=== PATIENT | male | born 1960 | race Caucasian/White ===

== ENCOUNTER 2024-04-01 09:27 | Outpatient (AMB) | payer MEDICARE, MEDICAID, SELFPAY ==
--- NOTE | 2024-04-01 09:23 | HO.NEPHOV ---
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 He has had multiple episodes of MARIUM. Recent creatinine was at 1.9 which is gradually decreased to 1.3 as of 03/03/2024. He has a history of COPD. History of intubation and tracheostomy in 2013. Recently diagnosed with a nasopharyngeal carcinoma and waiting to see oncologist. History of present disease status post bilateral lower extremity amputation and currently in a wheelchair. 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 Sleep apnea Severe obesity Peripheral vascular disease Morbid obesity Lateral medullary syndrome Hypertension Hyperlipemia Hepatic steatosis Heterozygous factor V Leiden mutation Diabetes mellitus CVA (cerebral vascular accident) COVID-19 COPD (chronic obstructive pulmonary disease) Chronic kidney disease Chronic diastolic CHF (congestive heart failure) Below knee amputation Anemia Surgical History S/P emergency tracheotomy for assistance in breathing (~12/2013) H/O colonoscopy with polypectomy (~06/2017) Review of Systems Const Denies fever(s) and Denies weight loss Card Denies chest pain Resp Denies cough and Denies hemoptysis GI Denies abdominal pain, Denies diarrhea and Denies nausea Musc Denies back pain Neuro Denies focal weakness Physical Exam Vital Signs: Last Vital Signs Pulse 73 04/01/24 09:31 BP 120/64 04/01/24 09:31 Pulse Ox 97 04/01/24 09:31 Oxygen Delivery Method Room Air 04/01/24 09:31 Const General: comfortable; No acute distress Orientation/consciousness: patient oriented x3 Eyes General: appearance normal, both eyes and all related structures Visual Jeff: normal visual jeff by confrontation Neck Neck: Yes supple and Yes no JVD Resp Effort & Inspection: normal respiratory effort and respiratory effort not decreased Auscultation: rhonchi Cardio Palpation: no palpable S3 and no palpable S4 Heart sounds: no rubs GI Inspection: Yes normal to inspection Palpation (GI): Soft to palpation Percussion: Yes normal to percussion Auscultation: normal bowel sounds General: Yes no CVA tenderness Back/Spine/Pelvis Back: no CVA tenderness Skin General skin exam: no petechiae and no purpura Neuro General: patient oriented x3 and no focal motor deficits Extrem Other: Bilateral lower extremity amputee Results Reviewed Results Reviewed: Recent creatinine 1.33 Nephrology Results: No Data to Display Assessment & Plan Assessment & Plan (1) Chronic kidney disease: Code(s): N18.9 - Chronic kidney disease, unspecified Category: Medical Plan 61-year-old man with longstanding diabetes mellitus and hypertension with chronic kidney disease stage 3. 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 He had episodes of acute kidney injury mostly due to hypoperfusion. At present I MARIUM is resolved and renal functions close to baseline. Goal is to slow the portion disease. We discussed importance of tight control blood pressure and blood sugar to slow the portion disease. Continue with LEATHA blockade and SGLT2 inhibitors. Continue overt nephrotoxic agents including NSAIDs. All medication should be adjusted to EGFR of less than 60 mL/minute. Orders: Orders Creatinine Urine Today N18.9 - Chronic kidney disease, unspecified Comprehensive Met. Panel Today N18.9 - Chronic kidney disease, unspecified Total Protein Urine Random Today N18.9 - Chronic kidney disease, unspecified UA and rflx microscopic Today N18.9 - Chronic kidney disease, unspecified Complete Blood Count Auto Diff Today N18.9 - Chronic kidney disease, unspecified Parathyroid Hormone Related Pr Today N18.9 - Chronic kidney disease, unspecified Coding Level of Care Code New Pt Level 4 (83634) Diagnoses Chronic kidney disease N18.9
[2024-04-01 09:31] VITALS: BP 120/64; PULSE 73; O2SAT 97
== END 2024-04-01 09:49 | disposition home or self-care (01) ==
PROVIDERS: PCP Internal Medicine; Visit Provider Internal Medicine Hypertension Specialist
DX: N18.9 Chronic kidney disease, unspecified (principal)
CPT/HCPCS: 99204

== ENCOUNTER → 2024-04-01 09:27 | Outpatient (BNVA) | payer MEDICARE, SELFPAY | PROVIDERS: PCP Internal Medicine; Visit Provider Internal Medicine Hypertension Specialist | DX: E11.3599 Type 2 diabetes mellitus with proliferative diabetic retinopathy without macular edema, unspecified eye (principal); E11.22 Type 2 diabetes mellitus with diabetic chronic kidney disease; N18.9 Chronic kidney disease, unspecified | CPT/HCPCS: 99202 ==

== ENCOUNTER 2024-09-02 08:40 | Outpatient (AMB) | payer MEDICARE, MEDICAID, SELFPAY ==
--- NOTE | 2024-09-02 08:44 | HO.NEPHOV_ITS ---
Vital Signs 09/02/24 08:45 Weight 262 lb BP 108/52 L Blood Pressure Location Rt brachial Position Sitting Pulse 72 Pulse Source Pulse Oximeter Pulse Oximetry (%) 97 Oxygen Delivery Method Room Air Intake Visit Reasons: Follow up/ Conf Digital Associate Media Director Required: No Accompanied by: Self / Same As Patient Allergies No Known Allergies Allergy (Verified 09/02/24 08:46) Medication List - Last Reconciled 09/02/24 by Ramiro Al MD albuterol sulfate 90 mcg/actuation inhalation Q4H PRN amlodipine 5 mg PO BID atorvastatin 80 mg PO DAILY baclofen 5 mg PO BID bumetanide 1 mg PO DAILY cholecalciferol (vitamin D3) (Vitamin D3) 25 mcg PO DAILY clopidogrel 75 mg PO DAILY empagliflozin (Jardiance) 25 mg PO DAILY ezetimibe 10 mg PO DAILY fenofibrate nanocrystallized 145 mg PO DAILY fluticasone furoate 100 mcg/actuation (Arnuity Ellipta) 1 inh inhalation DAILY insulin regular hum U-500 conc (Humulin R U-500 (Conc) Insulin Kwikpen) units subcut labetalol 100 mg PO BID losartan 50 mg PO DAILY omeprazole 40 mg PO DAILY oxycodone 5 mg PO BID PRN polyethylene glycol 3350 grams PO DAILY semaglutide (Ozempic) 0.5 mg subcut QWEEK umeclidinium 62.5 mcg/actuation (Incruse Ellipta) 1 inh inhalation DAILY HPI Comments Details: 64-year-old man with longstanding history of hypertension diabetes mellitus his chronic kidney disease. He has had multiple episodes of MARIUM. Recent creatinine was at 1.9 which is g radually decreased to 1.3 as of 03/03/2024. He has a history of COPD. History of intubation and tracheostomy in 2013. Recently diagnosed with a nasopharyngeal carcinoma and waiting to see oncolo gist. History of present disease status post bilateral lower extremity amputation and currently in a wheelchair Recently in ER for constipation s/p Manual evacuation. 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 Sleep apnea Severe obesity Peripheral vascular disease Morbid obesity Lateral medullary syndrome Hypertension Hyperlipemia Hepatic steatosis Heterozygous factor V Leiden mutation Diabetes mellitus CVA (cerebral vascular accident) COVID-19 COPD (chronic obstructive pulmonary disease) Chronic kidney disease Chronic diastolic CHF (congestive heart failure) Below knee amputation Anemia Surgical History S/P emergency tracheotomy for assistance in breathing (~12/2013) H/O colonoscopy with polypectomy (~06/2017) Physical Exam Vital Signs: Last Vital Signs Pulse 72 09/02/24 08:45 BP 108/52 L 09/02/24 08:45 Pulse Ox 97 09/02/24 08:45 Oxygen Delivery Method Room Air 09/02/24 08:45 Const General: comfortable; No acute distress Orientation/consciousness: patient oriented x3 Eyes General: appearance normal, both eyes and all related structures Visual Jeff: normal visual jeff by confrontation Neck Neck: Yes supple and Yes no JVD Resp Effort & Inspection: normal respiratory effort and respiratory effort not decreased Auscultation: rhonchi Cardio Palpation: no palpable S3 and no palpable S4 Heart sounds: no rubs GI Inspection: Yes normal to inspection Palpation (GI): Soft to palpation Percussion: Yes normal to percussion Auscultation: normal bowel sounds General: Yes no CVA tenderness Back/Spine/Pelvis Back: no CVA tenderness Skin General skin exam: no petechiae and no purpura Neuro General: patient oriented x3 and no focal motor deficits Extrem Other: Bilateral lower extremity amputee Results Reviewed Results Reviewed: Cr up to 2.4 as on 08/19/24 Nephrology Results: No Data to Display Assessment & Plan Assessment & Plan (1) Chronic kidney disease: Code(s): N18.9 - Chronic kidney disease, unspecified Category: Medical Plan 61-year-old man with longstanding diabetes mellitus and hypertension with chronic kidney disease stage 3. 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 He had episodes of acute kidney injury mostly due to hypoperfusion in a setting of Constipation and radiation REcheck labs today Increase PO fluid intake Goal is to slow the progression of the kidney disease. We discussed importance of tight control blood pressure and blood sugar to slow the portion disease. Continue with LEATHA blockade and SGLT2 inhibitors. Continue to avoid nephrotoxic agents including NSAIDs. All medication should be adjusted to EGFR of less than 60 mL/minute. Orders: Orders Electrolytes Today N18.9 - Chronic kidney disease, unspecified Blood Urea Nitrogen Today N18.9 - Chronic kidney disease, unspecified Creatinine Today N18.9 - Chronic kidney disease, unspecified Coding Level of Care Code Est Pt Level 4 (60241) Diagnoses Chronic kidney disease N18.9
--- OUTSIDE RECORDS SUMMARY | 2024-09-02 08:44 | XMS_ITS | Continuity of Care Document ---
Author Organization [facility] [place] [address] [place] [address]- Care Team Providers Care Heel Brusher Name Role Phone Hasmukh JOHNSON, Abdoul Varma Primary Care Physician Encounter [facility] Date(s): 07/28/24 - 08/27/24 [facility] [address] [address] Encounter Type: Triage Allergies, Adverse Reactions, Alerts No Known Medication Allergies Immunizations Given and Recorded Vaccine Date Status Refusal Reason influenza virus vaccine, inactivated 08/26/23 Give n influenza virus vaccine, inactivated 04/18/22 Give n influenza virus vaccine, inactivated 07/10/21 Give n influenza virus vaccine, inactivated 06/02/20 Give n influenza virus vaccine, inactivated 03/30/19 Give n influenza virus vaccine, inactivated 06/30/18 Give n influenza virus vaccine, inactivated 05/13/17 Give n influenza virus vaccine, inactivated 07/03/16 Give n influenza virus vaccine, inactivated 04/19/15 Give n influenza virus vaccine, inactivated 05/06/14 Give n influenza virus vaccine, inactivated 1 03/31/12 Gi poli influenza virus vaccine, inactivated 2 03/22/08 Gi poli influenza virus vaccine, inactivated 3 05/26/07 Gi poli [id number] 12y+ bivalent booster vax 04/16/22 Given SARS-CoV-2 (COVID-19) mRNA BNT-162b2 vac 07/10/21 Given SARS-CoV-2 (COVID-19) mRNA BNT-162b2 vac 09/27/20 Recorded zoster vaccine, inactivated 01/25/20 Recorded zoster vaccine, inactivated 09/18/19 Recorded tetanus/diphtheria/pertussis, acel(Tdap) 07/03/16 Given pneumococcal 23-valent vaccine 06/08/15 Given Pneumococcal Vaccine (oldterm) 4 08/21/06 Given Influenza Virus Vaccine (oldterm) 5 05/14/06 Given Diphth-Tetanus Toxoids Adsorbed(oldterm) 12/12/04 Given 1Admin Note: VIS GIVEN-DATED 01/14/12 2Admin Note: VIS GIVEN 3Admin Note: VIS GIVEN 4Admin Note: VIS-GIVEN 5Admin Note: VIS GIVEN Medications Albuterol (Eqv-ProAir HFA) 90 mcg/inh inhalation aerosol 1 puffs, Inhalation, Every 4 hours, PRN NEEDED FOR WHEEZING, # 8.5 Gm, 11 Refills, 05/27/23 9:42:00 AM EST, [facility], 33, 1 puffs Inhalation Every 4 hours,PRN: NEEDED FOR WHEEZING, 170, cm, 05/27/23 8:59:00 EST, Height, 123.8, kg, 03/06/23 11:53:00 EDT, Dry Weight Start Date: 05/27/23 Status: Ordered Quantity: 8.5 Unit: g Repeat number: 12 amLODIPine 5 mg oral tablet 5 mg, 1, tablet, By Mouth, Daily, # 90 tablet, Refills 1, Tot. Refills 1, Maintenance, 08/10/24 8:29:00 AM EST, Route to Pharmacy Electronically, [facility], dose decrease, 170, cm,08/10/24 8:03:00 EST, Height, 127, kg, 07/27/24 8:40:00 EST, Dry Weight Start Date: 08/10/24 Stop Date: 02/06/25 Status: Ordered Quantity: 90.0 Unit: tablet Repeat number: 2 Arnuity Ellipta 100 mcg inhalation powder 1 puffs, Inhalation, Every 24 hours, (THIS REPLACES FLOVENT), # 30 each, 5 Refills, Maintenance, 03/02/24 8:34:00 PM EDT, [facility], 170, cm, 02/28/24 9:19:00 EDT, Height, 132, kg,01/15/24 0:02:00 EDT, Dry Weight Start Date: 03/02/24 Status: Ordered Quantity: 30.0 Unit: each Repeat number: 1 atorvastatin 80 mg oral tablet 1 tablet, By Mouth, Daily, # 90 tablet, 1 Refills, Maintenance, 03/27/24 8:59:00 AM EDT, [facility], 170.18, cm, 03/12/24 10:52:00 EDT, Height, 134.7, kg, 03/11/24 10:33:00 EDT, DryWeight Start Date: 03/27/24 Status: Ordered Quantity: 90.0 Unit: tablet Repeat number: 1 Augmentin 875 mg-125 mg oral tablet 1 tablet, By Mouth, Every 12 hours, for 10 days, # 20 tablet, 0 Refills, Acute 08/28/24 3:03:00 PM EST, 08/18/24 3:03:00 PM EST, Tablet, [facility], Partial fill upon patient request if the prescription is for a schedule II opioid drug., 170, cm, 08/18/24 14:19:00 EST, Height, 119.09, kg, 08/18/24 8:44:00 EST, Dry Weight Start Date: 08/18/24 Stop Date: 08/28/24 Status: Ordered Quantity: 20.0 Unit: tablet Repeat number: 1 baclofen 5 mg oral tablet 1 tablet = 5 mg, By Mouth, 2 times a day, Once in the morning and once before bed, # 60 tablet, 7 Refills, Maintenance, 02/28/24 1:04:00 PM EDT, [facility], Partial fill upon patient request if the prescription is for a schedule II opioid drug., 170, cm, 02/28/24 9:19:00 EDT, Height, 132, kg, 01/15/24 0:02:00 EDT, Dry Weight Start Date: 02/28/24 Status: Ordered Quantity: 60.0 Unit: tablet Repeat number: 8 BD PEN NEEDLE MEY 32G X 4 MM MISC BD PEN NEEDLE MEY 32G X 4 MM MISC, See Instructions, # 600 each, 3 Refills, Maintenance, USE TO INJECT INSULIN 5 TIMES DAILY., 05/05/24 6:22:00 PM EDT, 170.18, cm, 05/05/24 10:30:00 EDT, Height, 134.7, kg, 03/11/24 10:33:00 EDT, Dry Weight Start Date: 05/05/24 Status: Ordered Quantity: 600.0 Unit: each Repeat number: 1 BD PEN NEEDLE MEY 32G X 4 MM MISC USE DIRECTED FOR DM TO INJECT INSULIN 4 TIMES A DAY Start Date: 05/30/22 Status: Ordered Repeat number: 1 BD pen needle mey [id number] BD pen needle mey [id number], See Instructions, # 600 each, Refills 3, Tot. Refills 3, Maintenance, use to inject insulin 5 times per day e11.9, 02/25/23 1:55:00 PM EDT, Supply, 180, cm, 02/25/23 13:40:00 EDT, Height, 150, kg, 02/03/23 16:08:00 EDT, Dry Weight Start Date: 02/25/23 Status: Ordered Quantity: 600.0 Unit: each Repeat number: 4 Benadryl Elixir 4 oz, Nystatin Suspension 4 oz, Lidocaine viscous 2% 100 mL, Mylanta or Maalox 8 oz Benadryl Elixir 4 oz, Nystatin Suspension 4 oz, Lidocaine viscous 2% 100 mL, Mylanta or Maalox 8 oz, See Instructions, # 580 mL, Refills 2, Tot. Refills 2, Acute 10/23/24 10:36:00 AM EDT, 1-2 tsp Q 2-4 hours PRN; Swish and Swallow; Shake well before use, 09/04/24 2:57:00 PM EST, Compound, 170, cm, 08/18/24 14:19:00 EST, Height, 119, kg, 08/18/24 15:14:00 EST, Dry Weight Start Date: 09/04/24 Stop Date: 10/23/24 Status: Ordered Quantity: 580.0 Unit: mL Repeat number: 3 Benadryl Elixir 4 oz, Nystatin Suspension 4 oz, Lidocaine viscous 2% 100 mL, Mylanta or Maalox 8 oz Benadryl Elixir 4 oz, Nystatin Suspension 4 oz, Lidocaine viscous 2% 100 mL, Mylanta or Maalox 8 oz, See Instructions, # 580 mL, Refills 2, Tot. Refills 2, Acute 09/04/24 2:57:00 PM EST, 1-2 tsp Q 2-4hours PRN; Swish and Swallow; Shake well before use, 07/03/24 2:56:00 PM EST, Compound, 170.18, cm,06/26/24 9:45:00 EST, Height, 134.7, kg, 03/11/24 10:33:00 EDT, Dry Weight Start Date: 07/03/24 Stop Date: 09/04/24 Status: Ordered Quantity: 580.0 Unit: mL Repeat number: 3 Boost Glucose Support (or equivalent supplement) Boost Glucose Support (or equivalent supplement), See Instructions, # 90 each, Refills 5, Tot. 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 Refills 1, Maintenance, 04/09/24 1:28:00 PMEDT, Route to Pharmacy Electronically, [facility], 170.18, cm, 04/03/24 9:44:00 EDT, Height, 134.7, kg, 03/11/24 10:33:00 EDT, Dry Weight Start Date: 04/09/24 Status: Ordered Quantity: 90.0 Unit: tablet Repeat number: 2 clopidogrel 75 mg oral tablet 75 mg, 1, tablet, By Mouth, Daily, # 90 tablet, Refills 3, Tot. Refills 3, Maintenance, 04/09/24 10:17:00 AM EDT, Route to Pharmacy Electronically, [facility], Partial fill upon patient request if the prescription is for a schedule II opioid drug., 170.18, cm, 04/03/24 9:44:00 EDT, Height, 134.7, kg, 03/11/24 10:33:00 EDT, Dry Weight Start Date: 04/09/24 Status: Ordered Quantity: 90.0 Unit: tablet Repeat number: 4 CPAP Machine See Instructions, # 1 each, Refills 0, Tot. Refills 0, Maintenance, auto CPAP 13 to 18cm of H20 with heated humidifier, with compliance data tracking. full face mask, and all tubing. Use QHS and PRN DX: G47.30 Duration: Lifetime, 06/03/24 11:02:00 AM EST, Supply Start Date: 06/03/24 Status: Ordered Quantity: 1.0 Unit: each Repeat number: 1 Indication: Sleep apnea, unspecified ezetimibe 10 mg oral tablet 1 tablet, By Mouth, Daily, # 90 tablet, 1 Refills, Maintenance, 06/18/24 10:18:00 AM EST, [facility], 170.18, cm, 05/26/24 9:12:00 EST, Height, 134.7, kg, 03/11/24 10:33:00 EDT, DryWeight Start Date: 06/18/24 Status: Ordered Quantity: 90.0 Unit: tablet Repeat number: 1 fenofibrate 145 mg oral tablet 1 tablet, By Mouth, Daily, # 90 tablet, 1 Refills, Maintenance, 04/29/24 2:25:00 PM EDT, [facility], 170.18, cm, 04/24/24 9:57:00 EDT, Height, 134.7, kg, 03/11/24 10:33:00 EDT, DryWeight Start Date: 04/29/24 Stop Date: 10/26/24 Status: Ordered Quantity: 90.0 Unit: tablet Repeat number: 2 Freestyle maggi 14 day sensor Freestyle maggi 14 day sensor, See Instructions, # 2 each, Refills 10, Tot. Refills 10, Maintenance, use to monitor bld glucose, change every 14 days E11.9, 12/24/23 3:04:00 PM EDT, Supply, 170, cm, 12/04/23 7:05:00 EDT, Height, 136.5, kg, 10/01/23 8:46:00 EDT, Dry Weight Start Date: 12/24/23 Status: Ordered Quantity: 2.0 Unit: each Repeat number: 11 freestyle precision peyton test strips freestyle precision peyton test strips, See Instructions, # 200 each, Refills 3, Tot. Refills 3, Maintenance, use to check blood sugar up to 3 times per day e11.9, 02/25/23 1:59:00 PM EDT, Supply, 180, cm, 02/25/23 13:40:00 EDT, Height, 150, kg, 02/03/23 16:08:00 EDT, Dry Weight Start Date: 02/25/23 Status: Ordered Quantity: 200.0 Unit: each Repeat number: 4 Glucagon 1 mg/0.2 mL subcutaneous solution = 1 mg, Subcutaneous Infusion, Once, To be use for hypoglycemic emergency by family member or accompanying person, if blood glucoses less than 60 and unconscious. Please call 911 after use glucagon pen., # 1 each, 0 Refills, Soft Stop, 04/24/24 10:51:00 AM EDT, [facility], Partial fill upon patient request if the prescription is for a schedule II opioid drug., 170.18, cm, 04/24/24 9:57:00 EDT, Height, 134.7, kg, 03/11/24 10:33:00 EDT, Dry Weight Start Date: 04/24/24 Status: Ordered Quantity: 1.0 Unit: each Repeat number: 1 HumuLIN R KwikPen (Concentrated) human recombinant 500 units/mL subcutaneous solution See Instructions, INJECT 80-110 UNITS UNDER THE SKIN 3 TIMES A DAY 30 MINUTES BEFORE MEALS PER SLIDING SCALE., # 20 mL, 5 Refills, Maintenance, 04/24/24 10:50:00 AM EDT, [facility], 170.18, cm, 04/24/24 9:57:00 EDT, Height, 134.7, kg, 03/11/24 10:33:00 EDT, Dry Weight Start Date: 04/24/24 Status: Ordered Quantity: 20.0 Unit: mL Repeat number: 6 Incruse Ellipta 62.5 mcg/inh inhalation powder 1 puffs, Inhalation, Every 24 hours, DOSES SHOULD BE TAKEN AT LEAST 24 HOURS APART, # 30 each, 5 Refills, Maintenance, 02/24/24 3:36:00 PM EDT, [facility], 170, cm, 01/31/24 9:07:00EDT, Height, 132, kg, 01/15/24 0:02:00 EDT, Dry Weight Start Date: 02/24/24 Status: Ordered Quantity: 30.0 Unit: each Repeat number: 1 Jardiance 25 mg oral tablet 1 tablet = 25 mg, By Mouth, Daily in AM, Take one tablet daily in the morning, # 90 tablet, 3 Refills, Maintenance, 07/02/24 8:54:00 AM EST, Tablet, [facility], Partial fill upon patient request if the prescription is for a schedule II opioid drug., 170.18, cm, 06/26/24 9:45:00 EST, Height, 134.7, kg, 03/11/24 10:33:00 EDT, Dry Weight Start Date: 07/02/24 Status: Ordered Quantity: 90.0 Unit: tablet Repeat number: 4 labetalol 100 mg oral tablet 1 tablet, By Mouth, 2 times a day, # 180 tablet, 1 Refills, Maintenance, 06/18/24 10:18:00 AM EST, [facility], 170.18, cm, 05/26/24 9:12:00 EST, Height, 134.7, kg, 03/11/24 10:33:00EDT, Dry Weight Start Date: 06/18/24 Status: Ordered Quantity: 180.0 Unit: tablet Repeat number: 1 Left Below The Knee Replacement Socket & Supplies Left Below The Knee Replacement Socket & Supplies, See Instructions, # 1 each, Refills 0, Tot. Refills 0, Maintenance, Use As Indicated Dx: Left BKA (Z89.512) Duration: Lifetime, 08/15/22 9:13:00 AM EST, Supply Start Date: 08/15/22 Status: Ordered Quantity: 1.0 Unit: each Repeat number: 1 lidocaine 2% topical gel with applicator See Instructions, mix with silvadene before applying to wounds, # 100 mL, 1 Refills, Maintenance, 08/12/24 10:36:00 AM EST, Gel, [facility], Partial fill upon patient request if theprescription is for a schedule II opioid drug., 170, cm, 08/10/24 8:03:00 EST, Height, 127, kg, 07/27/24 8:40:00 EST, Dry Weight Start Date: 08/12/24 Status: Ordered Quantity: 100.0 Unit: mL Repeat number: 2 Lidocaine Viscous 2% solution 1 application, Topically, 4 times a day, PRN for mouth sore pain, Can mix with silvadene cream to apply to skin on neck, # 100 mL, 0 Refills, Maintenance, 07/28/24 2:53:00 PM EST, Solution, [facility], Partial fill upon patient request if the prescription is for a schedule II opioid drug., 1 application Topically 4 times a day,PRN:for mouth sore pain,Instr:Can mix with silvadenecream to apply to skin on neck, 170, cm, 07/27/24 8:40:00 EST, Height, 127, kg, 07/27/24 8:40:00 EST, Dry Weight Start Date: 07/28/24 Status: Ordered Quantity: 100.0 Unit: mL Repeat number: 1 losartan 50 mg oral tablet 1 tablet = 50 mg, By Mouth, 2 times a day, # 180 tablet, 1 Refills, Maintenance, 06/26/24 10:27:00 AM EST, [facility], Frequency increase from 50 mg daily to BID, 170.18, cm, 06/26/24 9:45:00 EST, Height, 134.7, kg, 03/11/24 10:33:00 EDT, Dry Weight Start Date: 06/26/24 Stop Date: 12/23/24 Status: Ordered Quantity: 180.0 Unit: tablet Repeat number: 2 MiraLax oral powder for reconstitution = 17 Gm, By Mouth, Daily, dissolve in 4 to 8 oz of beverage, # 527 Gm, 0 Refills, Acute 09/16/24 6:19:00 AM EST, 08/18/24 6:19:00 AM EST, REC Powder, [facility], Partial fill upon patient request if the prescription is for a schedule II opioid drug., 17 Gm By Mouth Daily,Instr:dissolve in 4 to 8 oz of beverage, 170, cm, 08/18/24 3:07:00 EST, Height, 119.09, kg, 08/18/24 3:07:00 EST, Dry Weight Start Date: 08/18/24 Stop Date: 09/16/24 Status: Ordered Quantity: 527.0 Unit: g Repeat number: 1 omeprazole 40 mg oral enteric coated capsule 1 capsule, By Mouth, Daily, # 90 capsule, 1 Refills, Maintenance, 04/29/24 2:21:00 PM EDT, [facility], 170.18, cm, 04/24/24 9:57:00 EDT, Height, 134.7, kg, 03/11/24 10:33:00 EDT, Dry Weight Start Date: 04/29/24 Status: Ordered Quantity: 90.0 Unit: capsule Repeat number: 2 Orthotics See Instructions, # 1 each, Refills 0, Tot. Refills 0, Maintenance, LEFT BELOW THE KNEE REPLACEMENT SOCKET Left BKA, 08/14/22 8:42:00 AM EST, Supply Start Date: 08/14/22 Status: Ordered Quantity: 1.0 Unit: each Repeat number: 1 oxyCODONE 5 mg oral tablet 5 mg, 1, tablet, By Mouth, Every 6 hours, PRN, # 28 tablet, Refills 0, Tot. Refills 0, Maintenance,as needed for pain, 08/12/24 10:37:00 AM EST, Route to Pharmacy Electronically, [facility], Partial fill upon patient request if the prescription is for a schedule II opioid drug., 170, cm, 08/10/24 8:03:00 EST, Height, 127, kg, 07/27/24 8:40:00 EST, Dry Weight Start Date: 08/12/24 Status: Ordered Quantity: 28.0 Unit: tablet Repeat number: 1 Ozempic 2 mg/3 mL (0.25 mg or 0.5 mg dose) subcutaneous solution = 0.5 mg, Subcutaneous Injection, Every week, rotate injection sites, # 3 mL, 5 Refills, Maintenance, 05/26/24 2:20:00 PM EST, Solution, [facility], Partial fill upon patient request if the prescription is for a schedule II opioid drug., 170.18, cm, 05/26/24 9:12:00 EST, Height, 134.7, kg, 03/11/24 10:33:00 EDT, Dry Weight Start Date: 05/26/24 Status: Ordered Quantity: 3.0 Unit: mL Repeat number: 6 senna - oral tablet 2 tablet, By Mouth, Daily at bedtime, PRN for constipation, # 60 tablet, 0 Refills, Maintenance, 07/27/24 6:09:00 AM EST, Tablet, [facility], Partial fill upon patient request if the prescription is for a schedule II opioid drug., 170, cm, 07/27/24 4:16:00 EST, Height, 127, kg, 07/27/24 4:16:00 EST, Dry Weight Start Date: 07/27/24 Status: Ordered Quantity: 60.0 Unit: tablet Repeat number: 1 Silvadene 1% cream 1 application, Topically, 2 times a day, for 30 days, Apply to area affected by radiotherapy., # 400 Gm, 2 Refills, Acute 10/25/24 2:52:00 PM EDT, 07/27/24 2:52:00 PM EST, Cream, [facility], Partial fill upon patient request if the prescription is for a schedule II opioid drug., 1 application Topically 2 times a day,x30 days,Instr:Apply to area affected by radiotherapy., 170, cm,07/27/24 8:40:00 EST, Height, 127, kg, 07/27/24 8:40:00 EST, Dry Weight Start Date: 07/27/24 Stop Date: 10/25/24 Status: Ordered Quantity: 400.0 Unit: g Repeat number: 3 Spacer for Inhaler Spacer for Inhaler, See Instructions, # 1 each, Refills 0, Tot. Refills 0, Maintenance, Spacer for inhaler Dx: J44.9 COPD, 08/19/24 2:43:00 PM EST, Supply, 170, cm, 08/18/24 14:19:00 EST, Height, 119, kg, 08/18/24 15:14:00 EST, Dry Weight Start Date: 08/19/24 Status: Ordered Quantity: 1.0 Unit: each Repeat number: 1 Vitamin D3 1000 intl units oral capsule 1 capsule = 25 mcg, By Mouth, Daily, # 100 capsule, 2 Refills, Maintenance, 08/27/24 9:09:00 AM EST,Capsule, [facility], Partial fill upon patient request if the prescription is for a schedule II opioid drug., 170, cm, 08/18/24 14:19:00 EST, Height, 119, kg, 08/18/24 15:14:00 EST, Dry Weight Start Date: 08/27/24 Status: Ordered Quantity: 100.0 Unit: capsule Repeat number: 3 Problem List Condition Confirmation Course Effective Dates Status H ealth Status Informant Below knee amputation 1 Confirmed Active Anemia Confirmed Active Chronic diastolic CHF (congestive heart failure) Confirmed Active Chronic kidney disease (CKD) stage G3b/A2, moderately decreased glomerular filtration rate (GFR) between 30-44 mL/min/1.73 square meter and albuminuria creatinine ratio between 30-299 mg/g Confirmed Active COPD (chronic obstructive pulmonary disease) 2 Confirmed Active COVID-19 3 Confirmed 09/01/22 Active CVA (cerebrovascular accident) 4, 5 Confirmed Active Diabetes mellitus 6, 7, 8 Confirmed Active Difficulty walking Confirmed Active Factor V Leiden mutation-heterozygous 9 Confirmed Active Hyperlipidemia Confirmed Active Hypertension Confirmed Active 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 Confirmed 03/15/24 Active Morbid obesity Confirmed Active Peripheral vascular disease 10 Confirmed Active Severe obesity Confirmed Active Sleep apnea 11, 12, 13 Confirmed Active Muscle spasm Confirmed Active Hepatic steatosis 14 Confirmed Active 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 pt refused evaluation and txmt. not willing to use CPAP. 13on cpap , dx 04/20 14neg hep b and c Social History Social History Type Response Smoking Status Cigars or pipes but not daily within last 30 days; Other: Quit in 2013; entered on: 03/17/21 Sex Sex Representation Male (finding) Patient Care team information Care Team Personnel Name: Jaye Granados RN Position: [facility] RN Member Role: Primary Care Nurse Name: Abdoul Noe MD Position: [facility] Physician - Primary Care Member Role: PCP Address: [address] [place] [address] [place] [address]- Telecom: Name: Litzy Hdz RN Position: [facility] SN RN Member Role: Primary Care Nurse Name: Marlyn Hemphill Position: [facility] RN Member Role: Primary Care Nurse Name: Eugenio Sams RN Position: [facility] RN Member Role: Primary Care Nurse Name: Tiffanie Mahan RN Position: [facility] RN Member Role: Primary Care Nurse Name: Antonio Funez MD Position: [facility] Renal MD Member Role: Lifetime Consulting Physician Address: [address] [place] [address] [address] [facility] [address]- Telecom: Name: Jalyn Darby RN Position: [facility] ED RN W/OE and Tasks Member Role: Primary Care Nurse Name: Samira Mcgrath RN Position: [facility] SN RN Member Role: Primary Care Nurse Name: Tsering Leal RN Position: [facility] RN Member Role: Primary Care Nurse Name: Fran Payton RN Position: [facility] RN Member Role: Primary Care Nurse Name: Mathew Becerra RN Position: [facility] SN RN Member Role: Primary Care Nurse Name: Jamison Caballero RN Position: [facility] RN Member Role: Primary Care Nurse Name: Desirae Jolly RN Position: [facility] RN Member Role: Primary Care Nurse Name: Kathe Weinberg RN Position: [facility] RN Member Role: Primary Care Nurse Name: Martha Yun RN Position: [facility] RN Member Role: Primary Care Nurse Name: Melody Gilman Position: [facility] Outreach Member Role: Lifetime Consulting Physician Name: Chanelle Borges RN Position: [facility] ED RN W/OE and Tasks Member Role: Primary Care Nurse Name: Daniel Morrow MD Position: [facility] Outreach Member Role: Lifetime Consulting Physician Address: [address] [facility] [place] [address]- [place] Telecom: Name: Michelle Sheridan RN Position: [facility] SN RN Member Role: Primary Care Nurse Name: Kaila Vaughan RN Position: [facility] RN Member Role: Primary Care Nurse Name: Barbie Flaherty RN Position: [facility] ED RN W/OE and Tasks Member Role: Primary Care Nurse Name: Cedric Manley Position: [facility] Outreach Member Role: Lifetime Consulting Physician Name: Maddison Salaazr RN Position: [facility] SN RN Member Role: Primary Care Nurse Name: Tiffanie Ware RN Position: [facility] RN Member Role: Primary Care Nurse Name: Alexa Doan RN Position: [facility] RN Member Role: Primary Care Nurse Name: Tsering Weller RN Position: [facility] SN RN Member Role: Primary Care Nurse Name: Rosa Padilla RN Position: [facility] RN Member Role: Primary Care Nurse Name: Thor Grant MD Position: Reference Physician Member Role: Lifetime Consulting Physician Address: [address] [facility] [place] [address]- Telecom: Name: Autumn Rowan RN Position: [facility] Hospital Mixing Pan Tender Member Role: Primary Care Nurse Care Team Related Persons Name: JESSICA LAROSE Name: LEWIS RODRIGUEZ Insurance Providers Guarantor name: BRIAN RODRIGUEZ Health Plan Information #: 1 Payer: MEDICARE PART B OUTPT Member Number: NA Policy Number: NA Group Number: NA Health Plan Information #: 2 Payer: [facility] Member Number: NA Policy Number: NA Group Number: NA
--- OUTSIDE RECORDS SUMMARY | 2024-09-02 08:44 | XMS_ITS | Continuity of Care Document ---
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 Name Role Phone Hasmukh JOHNSON, Abdoul Varma Primary Care Physician [place] [facility] [place]24 [place] 08/14/24 [facility] [address] [id number] Discharge Disposition: A-D/C Home Attending Physician: Anjana Mishra MD Admitting Physician: Sue Sandoval MD Referring Physician: Armin Nagy MD, I Encounter Type: Disch Recurring OP Allergies, Adverse Reactions, Alerts No Known Medication [...] virus vaccine, inactivated 3 05/26/07 Gi poli [id number] 12y+ bivalent booster vax 04/16/22 Given SARS-CoV-2 [...] 8:29:00 AM EST, Route to Pharmacy Electronically, [id number], dose decrease, 170, cm,08/10/24 8:03:00 EST, Height, 127, kg, 07/27/24 8:40:00 EST, Dry Weight Start Date: 08/10/24 Stop Date: 02/06/25 Status: Ordered Quantity: 90.0 Unit: tablet Repeat number: 2 Arnuity Ellipta 100 mcg inhalation powder 1 puffs, Inhalation, Every 24 hours, (THIS REPLACES FLOVENT), # 30 each, 5 Refills, Maintenance, 03/02/24 8:34:00 PM EDT, [facility], 170, cm, 02/28/24 9:19:00 EDT, Height, 132, kg,01/15/24 0:02:00 EDT, Dry Weight Start Date: 03/02/24 Status: Ordered Quantity: 30.0 Unit: each Repeat number: 1 atorvastatin 80 mg oral tablet 1 tablet, By Mouth, Daily, # 90 tablet, 1 Refills, Maintenance, 03/27/24 8:59:00 AM EDT, [facility], 170.18, cm, 03/12/24 10:52:00 EDT, Height, 134.7, kg, 03/11/24 10:33:00 EDT, DryWeight Start Date: 03/27/24 Status: Ordered Quantity: 90.0 Unit: tablet Repeat number: 1 baclofen 5 mg oral tablet 1 tablet = 5 mg, By Mouth, 2 times a day, Once in the morning and once before bed, # 60 tablet, 7 Refills, Maintenance, 02/28/24 1:04:00 PM EDT, [facility] #[facility], Partial fill upon patient request [...] Repeat number: 1 BD pen needle mey [id number] BD pen needle mey [id number], See Instructions, # 600 each, Refills 3, [...] 04/09/24 1:28:00 PMEDT, Route to Pharmacy Electronically, [facility] #782, 170.18, cm, 04/03/24 9:44:00 EDT, Height, 134.7, kg, 03/11/24 10:33:00 EDT, Dry Weight Start Date: 04/09/24 Status: Ordered Quantity: 90.0 Unit: tablet Repeat number: 2 clopidogrel 75 mg oral tablet 75 mg, 1, tablet, By Mouth, Daily, # 90 tablet, Refills 3, Tot. Refills 3, Maintenance, 04/09/24 10:17:00 AM EDT, Route to Pharmacy Electronically, [facility] #782, Partial fill upon patient request [...] 1 Refills, Maintenance, 06/18/24 10:18:00 AM EST, [facility] #[facility], 170.18, cm, 05/26/24 9:12:00 EST, Height, 134.7, kg, 03/11/24 10:33:00 EDT, DryWeight Start Date: 06/18/24 Status: Ordered Quantity: 90.0 Unit: tablet Repeat number: 1 fenofibrate 145 mg oral tablet 1 tablet, By Mouth, Daily, # 90 tablet, 1 Refills, Maintenance, 04/29/24 2:25:00 PM EDT, [facility], 170.18, cm, 04/24/24 9:57:00 EDT, [...] 5 Refills, Maintenance, 04/24/24 10:50:00 AM EDT, [facility] #[facility], 170.18, cm, 04/24/24 9:57:00 EDT, Height, 134.7, kg, 03/11/24 10:33:00 EDT, Dry Weight Start Date: 04/24/24 Status: Ordered Quantity: 20.0 Unit: mL Repeat number: 6 Incruse Ellipta 62.5 mcg/inh inhalation powder 1 puffs, Inhalation, Every 24 hours, DOSES SHOULD BE TAKEN AT LEAST 24 HOURS APART, # 30 each, 5 Refills, Maintenance, 02/24/24 3:36:00 PM EDT, [facility] #[facility], 170, cm, 01/31/24 9:07:00EDT, Height, 132, kg, 01/15/24 0:02:00 EDT, Dry Weight Start Date: 02/24/24 Status: Ordered Quantity: 30.0 Unit: each Repeat number: 1 Jardiance 25 mg oral tablet 1 tablet = 25 mg, By Mouth, Daily in AM, Take one tablet daily in the morning, # 90 tablet, 3 Refills, Maintenance, 07/02/24 8:54:00 AM EST, Tablet, [facility], Partial fill upon [...] Maintenance, 06/18/24 10:18:00 AM EST, [facility], 170.18, cm, 05/26/24 9:12:00 EST, Height, 134.7, kg, 03/11/24 10:33:00EDT, Dry Weight Start Date: 06/18/24 Status: Ordered Quantity: 180.0 Unit: tablet Repeat number: 1 Left Below The Knee Replacement Socket & Supplies Left Below The Knee Replacement Socket & Supplies, See Instructions, # 1 each, Refills 0, Tot. Refills 0, Maintenance, Use As Indicated Dx: Left UBALDOA (Z89.512) Duration: Lifetime, 08/15/22 9:13:00 AM EST, [...] Maintenance, 06/26/24 10:27:00 AM EST, [facility], Frequency increase from 50 mg daily to BID, 170.18, cm, 06/26/24 9:45:00 EST, Height, 134.7, kg, 03/11/24 10:33:00 EDT, Dry Weight Start Date: 06/26/24 Stop Date: 12/23/24 Status: Ordered Quantity: 180.0 Unit: tablet Repeat number: 2 omeprazole 40 mg oral enteric coated capsule 1 capsule, By Mouth, Daily, # 90 capsule, 1 Refills, Maintenance, 04/29/24 2:21:00 PM EDT, [facility], 170.18, cm, 04/24/24 9:57:00 EDT, [...] 10:37:00 AM EST, Route to Pharmacy Electronically, [facility] #[facility], Partial fill upon patient request [...] Maintenance, Spacer for inhaler Dx: J44.9 COPD, 08/10/24 4:04:00 PM EST, Supply, 170, cm, 08/10/24 8:03:00 EST, Height, 127, kg, 07/27/24 8:40:00 EST, Dry Weight Start Date: 08/10/24 Status: Ordered Quantity: 1.0 Unit: each Repeat number: 1 Vitamin D3 1000 intl units oral capsule 1 capsule = 25 mcg, By Mouth, Daily, # 100 capsule, 2 Refills, Maintenance, 10/31/23 8:57:00 AM EDT,Capsule, [facility], Partial fill upon patient request if the prescription is for a schedule II opioid drug., 170, cm, 10/31/23 8:31:00 EDT, Height, 136.5, kg, 10/01/23 8:46:00 EDT, Dry Weight Start Date: 10/31/23 Status: Ordered Quantity: 100.0 Unit: capsule Repeat [...] dx 04/20 14neg hep b and c Vital Signs Most recent to oldest [Reference Range]: 1 2 3 Height 170 cm (08/04/24 2:38 PM) 170.18 cm (07/21/24 2:28 PM) 170.18 cm (07/14/24 2:31 PM) Weight 130.2 kg (06/30/24 4:40 PM) 133.7 kg (06/23/24 4:41 PM) Oxygen Saturation [94-100 %] 98 % (08/11/24 2:20 PM) 99 % (08/04/24 2:38 PM) 97 % (07/28/24 2:25 PM) Pulse Rate [55-90 bpm] 65 bpm (08/11/24 2:20 PM) 66 bpm (08/04/24 2:38 PM) 78 bpm (07/28/24 2:25 PM) Blood Pressure [90-138/55-84 mm Hg] 135/31mm Hg (08/11/24 2:20 PM) 133/46mm Hg (08/04/24 2:38 PM) 141/43mm Hg *H* (07/28/24 2:25 PM) Temperature [96.8-100.4 DegF] 97.1 DegF (08/11/24 2:20 PM) 97.9 DegF (08/04/24 2:38 PM) 98.4 DegF (07/28/24 2:25 PM) Mode of Delivery (Oxygen) Room air (08/11/24 2:20 PM) Room air (08/04/24 2:38 PM) Room air (07/28/24 2:25 PM) Blood pressure sites Arm, left (08/11/24 2:20 PM) Arm, left (08/04/24 2:38 PM) Arm, right (07/28/24 2:25 PM) Temperature Route Temporal (08/11/24 2:20 PM) Oral (08/04/24 2:38 PM) Oral (07/28/24 2:25 PM) Weight Obtained Via Standing scale (07/28/24 2:25 PM) Standing scale (07/14/24 2:31 PM) Per Mosaiq (06/30/24 4:40 PM) Dry Weight Obtained Via Standing scale (07/28/24 2:25 PM) Standing scale (07/14/24 2:31 PM) Social History Social History Type Response Smoking Status Cigars or pipes but not daily within last 30 days; Other: Quit in 2013; entered on: 03/17/21 Sex Sex Representation Male (finding) Patient Care team information Care Team Personnel Name: Jaye Granados RN Position: [facility] RN Member Role: Primary Care Nurse Name: Hasmukh JOHNSON, Abdoul Varma Position: [facility] Physician - Primary Care Member Role: PCP Address: [address] [place] [address]- Telecom: Name: Ltizy Hdz RN Position: [facility] SN RN Member Role: Primary Care Nurse Name: Marlyn Hemphill Position: [facility] RN Member Role: Primary Care Nurse Name: Eugenio Sams RN Position: [facility] RN Member Role: Primary Care Nurse Name: Tiffanie Mahan RN Position: [facility] RN Member Role: Primary Care Nurse Name: Antonio Funez MD Position: [facility] Renal MD Member Role: Lifetime Consulting Physician Address: [address] [place] [address] [address] [facility] [place] [address]- Telecom: Name: Jalyn Darby RN Position: [facility] ED RN W/OE and Tasks Member Role: Primary Care Nurse Name: Samira Mcgrath RN Position: [facility] SN RN Member Role: Primary Care Nurse Name: Tsering Leal RN Position: [facility] RN Member Role: Primary Care Nurse Name: Fran Payton RN Position: [facility] RN Member Role: Primary Care Nurse Name: Mathew Becerra RN Position: [facility] SN RN Member Role: Primary Care Nurse Name: Jamison Caballero RN Position: [facility] RN Member Role: Primary Care Nurse Name: Desirae Jolly RN Position: [facility] RN Member Role: Primary Care Nurse Name: Kathe Weinberg RN Position: [facility] RN Member Role: Primary Care Nurse Name: Martha Yun RN Position: [facility] RN Member Role: Primary Care Nurse Name: Melody Gilman Position: [facility] Outreach Member Role: Lifetime Consulting Physician Name: Chanelle Borges RN Position: [facility] ED RN W/OE and Tasks Member Role: Primary Care Nurse Name: Daniel Morrow MD Position: [facility] Outreach Member Role: Lifetime Consulting Physician Address: [address] [facility] [place] [address]- [place] Telecom: Name: Michelle Sheridan RN Position: [facility] SN RN Member Role: Primary Care Nurse Name: Kaila Vaughan RN Position: [facility] RN Member Role: Primary Care Nurse Name: Barbie Flaherty RN Position: [facility] ED RN W/OE and Tasks Member Role: Primary Care Nurse Name: Cedric Manley Position: [facility] Outreach Member Role: Lifetime Consulting Physician Name: Maddison Salazar RN Position: [facility] SN RN Member Role: Primary Care Nurse Name: Tiffanie Ware RN Position: [facility] RN Member Role: Primary Care Nurse Name: Alexa Doan RN Position: [facility] RN Member Role: Primary Care Nurse Name: Tsering Weller RN Position: [facility] SN RN Member Role: Primary Care Nurse Name: Rosa Padilla RN Position: [facility] RN Member Role: Primary Care Nurse Name: Thor Grant MD Position: Reference Physician Member Role: Lifetime Consulting Physician Address: [address] [facility] [place] [address]- [place] Telecom: Name: Autumn Rowan RN Position: [facility] Web Services Architect Member Role: Primary Care Nurse Care Team Related Persons Name: JESSICA LAROSE Name: LEWIS RODRIGUEZ Insurance Providers Guarantor name[facility] Plan Information #: 1 Payer: MEDICARE PART B OUTPT Member Number: [id number] Policy Number: NA Group Number: NA Health Plan Information #: 2 Payer: [facility] Member Number: [id number] Policy Number: NA Group Number: NA
--- OUTSIDE RECORDS SUMMARY | 2024-09-02 08:44 | XMS_ITS | Clinical Summary ---
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 Role Phone Abdoul Noe MD Primary Care Provider [phone] Medications Umeclidinium [place] (Incruse Ellipta) 62.5 MCG/INH aerosol powder 1 puff by Other route 1 (one) time each day Active albuterol HFA (Ventolin HFA) 108 (90 Base) MCG/ACT inhaler 1 puff by Other route every 4 (four) hours Active atorvastatin (LIPITOR) 80 MG tablet Take 80 mg by mouth 1 (one) time each day 1 Active bumetanide (BUMEX) 1 MG tablet Take 1 mg by mouth 1 (one) time each day 1 Active clopidogrel (PLAVIX) 75 MG tablet Take 75 mg by mouth 1 (one) time each day 1 Active ezetimibe (ZETIA) 10 MG tablet Take 10 mg by mouth 1 (one) time each day 1 Active fenofibrate (TRICOR) 145 MG tablet Take 145 mg by mouth 1 (one) time each day 1 Active fluticasone HFA (Flovent HFA) 110 MCG/ACT inhaler Inhale 2 puffs 2 (two) times a day Active gabapentin (NEURONTIN) 100 MG capsule Take 100 mg by mouth 1 Active HumuLIN R U-500 KWIKPEN 500 UNIT/ML CONCENTRATED injection INJECT 50 UNITS UNDER THE SKIN TWICE DAILY 1 Active insulin lispro protamine-insulin lispro (HumaLOG MIX 50/50 KWIKPEN) (50-50) 100 UNIT/ML inj pen Active labetalol (NORMODYNE) 100 MG tablet Take 100 mg by mouth 2 (two) times a day 1 Active latanoprost (XALATAN) 0.005 % ophthalmic solution Administer 1 drop into both eyes Active liraglutide (Victoza) 18 MG/3ML injection Inject 1.8 mg under the skin 1 (one) time each day Active losartan (COZAAR) 100 MG tablet Take 1 tablet by mouth 2 (two) times a day Active metFORMIN (FORTAMET) 500 MG 24 hr tablet Take 2 tablets by mouth 2 (two) times a day Active omeprazole (PriLOSEC) [address] capsule Take 40 mg by mouth 1 (one) time each day 1 Active amLODIPine (NORVASC) 5 MG tablet TAKE ONE TABLET BY MOUTH EVERY DAY 90 tablet 1 1 Active Active Problems Problem Noted Date Diagnosed Date Type 2 diabetes mellitus 03/27/2021 Hypertensive renal disease 03/27/2021 Gastroenteritis 03/27/2021 Essential hypertension 03/27/2021 Chronic kidney disease stage 3 03/27/2021 Acute nontraumatic kidney injury 03/27/2021 Encounters Date Type Department Care Team Description 08/20/2024 Office Communication [facility] [address] [address] Maurice Venegas MD from Last 3 Months Family History Medical History Relation Comments Diabetes Father borderline DM Gout Father Heart disease Father Hypertension Father Kidney disease Father ESRD, paternal a unt - dialysis Stroke Father Heart disease Mother Hypertension Mother Stroke Mother Hypertension Sibling Relation Status Comments Father Mother Sibling Social History Tobacco Use Types Packs/Day Years Used Date Smoking Tobacco: Former Cigarettes Q uit: 11/12/2013 Comments:Smoking History Inf o:Every day Sex and Gender Information Value Date Recorded Sex Assigned at Not on file Legal Sex Male 5:08 PM EST Gender Identity Not on file Sexual Orientation Not on file Last Filed Vital Signs Vital Sign Reading Time Taken Comments Blood Pressure 112/80 02/16/2020 12:00 PM EDT Pulse 68 07/14/2019 12:00 PM EST Temperature - - Respiratory Rate - - Oxygen Saturation - - Inhaled Oxygen Concentration - - Weight 125 kg (275 lb) 02/16/2020 12:00 PM EDT Height 171.5 cm (5' 7.5 ) 02/16/2020 12:00 PM ED T Body Mass Index 42.44 02/16/2020 12:00 PM EDT Plan of Treatment Health Maintenance Due Date Last Done Comments Colorectal Cancer Screening: Annual FOBT 2010 Colorectal Cancer Screening: Colonoscopy 2010 Colorectal Cancer Screening: Sigmoidoscopy 2010 Pneumococcal Vaccine: Pediat rics (0 to 5 Years) and At-Risk Patients (6 to 64 Years) (3 of 3 - PCV) 06/08/2016 06/08/2015, 08/21/2006 Diabetes: Hemoglobin A1C 08/14/2020 07/16/2019, 12/13 Diabetes: Ophthalmology Exam 08/14/2020 Diabetes: Pedal Pulse Checked 08/14/2020 Diabetes: Sensory Foot Exam 08/14/2020 Diabetes: Visual Foot Exam 08/14/2020 Hepatitis B Vaccine (1 of 3 - Risk 3-dose series) 2021 Influenza Vaccine (#1) 2024 4, 04/18/2022, 07/10/2021, Additional history exists Procedures Procedure Name Priority Date/Time Associated Diagnosis Comments HEMOGLOBIN A1C Routine 07/16/2019 11:33 AM EST from Last 3 Months or Most Recently Relevant to Health Maintenance Results * (ABNORMAL) Hemoglobin A1c (07/16/2019 11:33 AM EST) Hemoglobin A1C 7.6(H) (4-6) % [facility] Comment: HEMOGLOBIN A1C(%) ?? GLUCOSE CONTROL INDEX ?<6% ? EXCELLENT ?6-7% ?VERY GOOD ?7-8% ?GOOD ?8-10% ? FAIR ?>10% ?POOR Hemoglobin (Hb) A1c testing is performed by [employer] Lucille-quant immunoassay. Any cause of shortened erythrocyte survival will reduce exposure of erythrocytes to glucose with a consequent decrease in Hb A1c (%). Testing performed or reported by ~[facility], ~a Service of [facility], ~[address] [place] [id number]~ Krishna Negrete MD, Deckhand Engineer~ 07/16/2019 11:3 3 AM EST Cecilio Coates MD LAB BLOOD ORDERABLES Final Re sult [facility] 3 from Last 3 Months or Most Recently Relevant to Health Maintenance Insurance [place]IC[place] [facility] [place] 1,2,3 (VACCN) MEDICARE [facility] 1,2,3 (VACCN) Member Subscriber Plan / Payer (Ef fective 2010-Present) Name:Oscar Henry Relation to Subscriber:Self Name:Oscar Henry Payer ID:Not on file Group ID:Not on file Type:Not on file Address: [facility] [id number] [employer] [address] [place]ICAID [place] Care Teams 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
--- OUTSIDE RECORDS SUMMARY | 2024-09-02 08:44 | XMS_ITS | Continuity of Care Document ---
Author Name [facility] Organization [facility] Care Team Providers Care Mold Construction Supervisor Name Role Phone [facility] Unavailable Unavailable Problems Combined list of problems from Department of Defense and Veterans Affairs facilities. It does not include entries that were removed or entered in error. 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 Jan 29, 2011 Entered By: LUIS ANGEL MAHER RA Comment: 12-17: Lt Gt Toe 03/19: Rt Gt ToeJul 2010 Entered By: LUIS ANGEL MAHER RA Comment: 10/18: 2nd Left Toe AmputationJul 2010 Entered By: LUIS ANGEL MAHER RA Comment: 07/22: left 2nd MCP Amputation [place] Background diabetic retinopathy Active Condition Jan 29, 2011 Entered By: LUIS ANGEL MAHER RA Comment: 08/22: Lazer Surgery Left Eye [place] Cerebrovascular Accident Active Condition Jan 29, 2011 Entered By: LUIS ANGEL MAHER RA Comment: TIA X 3: 04/2005 & 05/2005 & 04/2006 [place] Diabetes Mellitus Type II or unspecified with unspecified complications Active Condition [place] Essential hypertension Active Condition [place] Foot Pain (ICD-9-CM 719.47) Active Condition [place] Headache Active Condition [place] Lack of Housing (ICD-9-CM V60.0) Active Condition [facility] ELD Novolog Sliding: AM: 5 Ux PM:5 Ux HS: 8Ux Active Condition Jan 29 011 Entered By: LUIS ANGEL MAHER RA Comment: 100-150: 2 Ux 151-200Ux: 4Ux 201-250Ux: 6UxJul 2010 Entered By: LUIS ANGEL MAHER RA Comment: 251-300 Ux: 8Ux 301-350: 10 UxJul 2010 Entered By: LUIS ANGEL MAHER RA Comment: NOT TO EXCEED 20 Units [place] Onychomycosis of toenails Active Condition [facility] Other Specified Housing or Economic Circumstances (ICD-9-CM V60.89) Active Condition [facility] IELD PCP: Hasmukh JOHNSON: [facility] Active Condition [place] Personal History of Alcoholism Active Condition Aug 30, 2011 Entered By: LUIS ANGEL MAHER RA Comment: used to drink alot: started at 15yo till quit 03-29-2005 [place] Personal History of Tobacco Use Active Condition Aug 30, 2011 Entered By: LUIS ANGEL MAHER RA Comment: Cigars: 1979 once a monthAug 30, 2011 Entered By: LUIS ANGEL MAHER RA Comment: Diet:3 meals/day Exercise: BikeAug 30, 2011 Entered By: LUIS ANGEL MAHER RA Comment: 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; 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 [place] Pure hypercholesterolemia Active Condition [facility] Aid: [place]:[phone] Active Condition [facility] LD Screening for Malignant Neoplasms of colon Active Condition Feb 28, 2012 Entered By: LUIS ANGEL MAHER RA Comment: 04/07/2012: Colonoscopy [facility] Social Hx: Single lives alone Active Condition [place] Unspecified Sleep Apnea Active Condition Jan 29, 2011 Entered By: LUIS ANGEL MAHER RA Comment: Has CPAP Machine: does not Use It [place] Medications Combined list of outpatient medications from Department of Defense and Veterans Affairs facilities.Medications provided include 1) outpatient medications from the last 15 months, and 2) patient-reported medications. Medication Details Route Status Patient Instructions Prescription Expires Prescription Number Last Dispense Date Ordering Provider Order Date Order Qty Source ATENOLOL 25MG TAB TAKE ONE TABLET BY MOUTH TWICE DAILY ORAL ACTIVE YASMANY DOMÍNGUEZ 2011 [facility] [place] ATORVASTATI N [place] 80MG TAB TAKE ONE TABLET BY MOUTH AT BEDTIME ORAL ACTIVE YASMANY DOMÍNGUEZ 2010 [facility] [place] INSULIN,GLA RGINE (LANTUS) INJ INJECT 10 UX SUBCUTAN EOUSLY EVERY MORNING SUBCUT ANEOUS ACTIVE YASMANY DOMÍNGUEZ 2011 [facility] METFORMIN (ONCE DAILY) TAB,SA TAKE 1000MGUN ITS BY MOUTH TWICE DAILY ORAL ACTIVE FITZGERAL YASMANY Bello 2010 [facility] VALSARTAN 80MG TAB TAKE FOUR TABLETS BY MOUTH DAILY ORAL ACTIVE HEAVENGERAL YASMANY Bello 2010 [facility] Allergies, Adverse Reactions, Alerts Combined list of allergies from Department of Defense and Veterans Affairs facilities. It does not include entries that were removed or entered in error. Substance Category Reaction Severity Reaction type Status Date Reported Comments Source LISINOPRIL Propensity to adverse reactions to drug (finding) active 2 [facility] [place] [facility] Immunizations Combined list of available immunizations from the Department of Defense and Veterans Affairs facilities. Immunization Series Date Given Administered By Site Reaction Lot Number CVX Code Drug Division Order Technician Status Comments Source COVID-19 ([employer]), VECTOR-NR, [id number]-[id number], PF, 0.5 ML 1 2020 212 complet ed JSN; [id number]; 1 [facility] [place] [facility] FLU,3 YRS (HISTORICAL) 2013 88 complet ed outside [facility] [place] [facility] [facility] DTAP, UNSPECIFIED FORMULATION 2011 107 complet ed Site: Right Deltoid [place] FLU,3 YRS (HISTORICAL) 2010 88 complet ed Site: Left Deltoid [place] PNEUMOCOCCAL, UNSPECIFIED FORMULATION 2009 109 complet ed [facility] [place] [facility] Social History Combined list of available smoking, tobacco, and other social history from Department of Defense and Veterans Affairs facilities. Social History Type Response Date Comment [facility] e Tobacco smoking status NHIS LIFETIME NON-TOBACCO USER 01/12 ROBERT
--- OUTSIDE RECORDS SUMMARY | 2024-09-02 08:44 | XMS_ITS | Encounter Summary ---
Author Organization [facility] Address [address] [place] [phone] Phone Care Team Providers Care Veterinary Laboratory Technician Name Role Phone Abdoul Noe MD Primary Care Provider [phone] Encounter Details Date Type Department Care Team (Late st Contact Info) Description 08/20/2024 Office Communication [facility]. [address] [id number] Maurice Venegas MD [address] [address] Social History Tobacco Use Types Packs/Day Years Used Date Smoking Tobacco: Former Cigarettes Q uit: 11/12/2013 Comments:Smoking History Inf o:Every day Sex and Gender Information Value Date Recorded Sex Assigned at Not on file Legal Sex Male 5:08 PM EST Gender Identity Not on file Sexual Orientation Not on file documented as of this encounter Miscellaneous Notes * Telephone Encounter - Naomy Shannon - 08/21/2024 11:07 AM EST Spoke with the patient and he indicated [facility] will [facility] * Telephone Encounter - Naomy Shannon - 08/20/2024 4:10 PM EST Patient seen in [place] ED 08/20/24. 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 Developed mouth sores, not eating or drinking much. Creatinine 2.4 up from baseline 1.7-2 Received IV fluid in ED. Mansi Pollard DO requesting follow up at [facility]. Patient last seen 4+years ago with Dr. Coates. Schedule visit with Dr. Venegas or Dr. Stacy at [facility] so follow up could be at [place]. Patient has transportation issues. Patient needs to check with transportation before scheduling. (Dr. Stacy-sent this information via [place]) documented in this encounter Plan of Treatment Not on file documented as of this encounter Visit Diagnoses Not on filedocumented in this encounter Care Teams Veterinary Laboratory Technician Relationship Specialty Start Date End Date Abdoul Noe MD [address] PCP - General 07/25/20 documented as of this encounter
--- OUTSIDE RECORDS SUMMARY | 2024-09-02 08:44 | XMS_ITS | Clinical Summary ---
Author Organization [facility] Address [address] [place] [address] Care Team Providers Care Bull Bucker Name Role Phone Stan Mota MD Primary Care Provider [phone] Social History Tobacco Use Types Packs/Day Years Used Date Smoking Tobacco: Never Assessed Sex and Gender Information Value Date Recorded Sex Assigned at Not on file Legal Sex Male 1:11 PM EDT Gender Identity Not on file Sexual Orientation Not on file Plan of Treatment Health Maintenance Due Date Last Done Comments Hepatitis C Screening 1961 DTaP/Tdap/Td (1 - Tdap) 1979 Pneumococcal 50+ years (1 of 1 - PCV) 2011 Zoster (Shingrix) (1 of 2) 2011 COVID-19 Vaccine ( - 2023-2 5 season) 2024 Influenza (#1) 2024 RSV (1 - 1-dose 75+ series) 02/21/2036 HPV Vaccine Aged Out No longer eligi ble based on patient's age to complete this topic Hep A Aged Out No longer eligi ble based on patient's age to complete this topic Hep B Aged Out No longer eligi ble based on patient's age to complete this topic Hib Aged Out No longer eligi ble based on patient's age to complete this topic Meningococcal ACWY Aged Out No longer eligible based on patient's age to complete this topic Zoster (Zostavax) Discontinued Care Teams Bull Bucker Relationship Specialty Start Date End Date Stan Mota MD [address] [place] [id number] PCP - General 02/18/23
--- OUTSIDE RECORDS SUMMARY | 2024-09-02 08:44 | XMS_ITS | Encounter Summary ---
Author Organization [employer] Address [address] [facility] 7t [place] [address] Care Team Providers Care Grade And Center Marker Name Role Phone Unavailable Primary Care Provider Unavailabl e Encounter Details Date Type Department Care Team (Latest Contact Info) Description 12/02/2018 Abstract [facility] CONVERSIONS Dental, Provider, DDS Social History Tobacco Use Types Packs/Day Years Used Date Smoking Tobacco: Never Assessed Sex and Gender Information Value Date Recorded Sex Assigned at Male 05/14/2022 10:35 AM EDT Legal Sex Male 10:35 AM EDT Gender Identity Male 05/14/2022 10:35 AM EDT Sexual Orientation Straight 05/14/2022 10 :35 AM EDT documented as of this encounter Plan of Treatment Not on file documented as of this encounter Visit Diagnoses Not on filedocumented in this encounter
--- OUTSIDE RECORDS SUMMARY | 2024-09-02 08:44 | XMS_ITS | Clinical Summary ---
Author Organization [employer] Address [address] [facility] 7t [place] [address] Care Team Providers Care Air Export Logistics Manager Name Role Phone Unavailable Primary Care Provider Unavailabl e Social History Tobacco Use Types Packs/Day Years Used Date Smoking Tobacco: Never Assessed Sex and Gender Information Value Date Recorded Sex Assigned at Male 05/14/2022 10:35 AM EDT Legal Sex Male 10:35 AM EDT Gender Identity Male 05/14/2022 10:35 AM EDT Sexual Orientation Straight 05/14/2022 10 :35 AM EDT Plan of Treatment Health Maintenance Due Date Last Done Comments CT Colonography 1961 Colonoscopy 1961 Colorectal Cancer Screening 1961 Depression Screening 1961 FIT DNA/Cologuard 1961 FIT 1961 FOBT 1961 Lipid Panel 1961 Sigmoidoscopy 1961 Alcohol/Substance Use Screening 1973 Tobacco Screening 1973 DTaP/Tdap/Td Vaccines (1 - Tdap) 02/21/1980 Pneumococcal Vaccine: 50+ Ye ars (1 of 1 - PCV) 2011 Zoster Vaccines (1 of 2) 2011 COVID-19 Vaccine ( - 2023-2 5 season) 2024 Influenza Vaccine (#1) 2024 RSV Patients and Pa tients Aged 60 years or older (1 - 1-dose 75+ series) 02/21/2036 HIB Vaccines Aged Out No longer eligi ble based on patient's age to complete this topic HPV Vaccines Aged Out No longer eligi ble based on patient's age to complete this topic Hepatitis A Vaccines Aged Out No long er eligible based on patient's age to complete this topic Hepatitis B Vaccines Aged Out No long er eligible based on patient's age to complete this topic IPV Vaccines Aged Out No longer eligi ble based on patient's age to complete this topic Meningococcal Vaccine Aged Out No zeus dorothea eligible based on patient's age to complete this topic Pneumococcal Vaccine: Pediat rics (0 to 5 Years) and At-Risk Patients (6 to 49) Years) Aged Out No longer eligible b ased on patient's age to complete this topic RSV under 20 months Aged Out No longe r eligible based on patient's age to complete this topic Rotavirus Vaccines Aged Out No longer eligible based on patient's age to complete this topic
[2024-09-02 08:45] VITALS: BP 108/52; PULSE 72; O2SAT 97
== END 2024-09-02 10:13 | disposition home or self-care (01) ==
PROVIDERS: PCP Internal Medicine; Visit Provider Internal Medicine Hypertension Specialist
DX: N18.9 Chronic kidney disease, unspecified (principal)
CPT/HCPCS: 99214

== ENCOUNTER 2024-09-02 08:40 | Outpatient (REF) | payer MEDICARE, MEDICAID, SELFPAY ==
--- OUTSIDE RECORDS SUMMARY | 2024-09-02 09:26 | XMS_ITS | Encounter Summary ---
Author Organization [employer] Address [address] [facility] 7t [place] [address] Care Team Providers Care Lens Grinder And Polisher Name Role Phone Unavailable Primary Care Provider Unavailabl e Encounter Details Date Type Department Care Team (Latest Contact Info) Description 12/02/2018 Abstract [facility] CONVERSIONS Dental, Provider, DDS Social History Tobacco [...]
--- OUTSIDE RECORDS SUMMARY | 2024-09-02 09:26 | XMS_ITS | Encounter Summary ---
Author Organization [facility] Address [address] [place] [phone] Phone Care Team Providers Care Driller Machine Name Role Phone Abdoul Noe MD Primary Care Provider [phone] Encounter Details Date Type Department Care Team (Late st Contact Info) Description 08/20/2024 Office Communication [facility]. [address] [phone] Maurice Venegas MD [address] [address] Social History Tobacco Use Types [...] [facility] * Telephone Encounter - Naomy Shannon - 08/20/2024 4:10 PM EST Patient seen in [place] ED 08/20/24. 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 Developed mouth sores, not eating or drinking much. Creatinine 2.4 up from baseline 1.7-2 Received IV fluid in ED. Mansi Pollard DO requesting follow up at [facility]. Patient last seen 4+years ago with Dr. Coates. Schedule visit with Dr. Venegas or Dr. Stacy at [facility] so follow up could be at [place]. Patient has transportation issues. Patient needs to check with transportation before scheduling. (Dr. Stacy-sent this information via [place]) documented in this encounter Plan of Treatment Not on file documented as of this encounter Visit Diagnoses Not on filedocumented in this encounter Care Teams Driller Machine Relationship Specialty Start Date End Date Abdoul Noe MD [address] PCP - General 07/25/20 documented as of this encounter
--- OUTSIDE RECORDS SUMMARY | 2024-09-02 09:26 | XMS_ITS | Clinical Summary ---
Author Organization [facility] Address [address] [place] [phone] Phone Care Team Providers Care Train Station Agent Name Role Phone Abdoul Noe MD Primary Care Provider [phone] Medications Umeclidinium Argyle (Incruse Ellipta) 62.5 MCG/INH aerosol powder 1 [...] Office Communication [facility] [address] [address] Maurice Venegas MD from Last [...] AM EST) Hemoglobin A1C 7.6(H) (4-6) % [facility] 3 Comment: HEMOGLOBIN A1C(%) ?? GLUCOSE CONTROL INDEX ?<6% ? EXCELLENT ?6-7% ?VERY GOOD ?7-8% ?GOOD ?8-10% ? FAIR ?>10% ?POOR Hemoglobin (Hb) A1c testing is performed by [employer] Lucille-quant immunoassay. Any cause of shortened erythrocyte survival will reduce exposure of erythrocytes to glucose with a consequent decrease in Hb A1c (%). Testing performed or reported by ~[facility], ~a Service of [facility], ~[address] [place] [id number]~ Krishna Negrete MD, Mail Distribution Clerk~ 07/16/2019 11:3 3 AM EST Cecilio Coates MD LAB BLOOD ORDERABLES Final Re sult [facility] 3 from Last 3 Months or Most Recently Relevant to Health Maintenance Insurance [place]ICARE [place]ID [place] [facility] [place] 1,2,3 (VACCN) MEDICARE [facility] REGIONS 1,2,3 (VACCN) MEDICAID [place] Care Teams Train Station Agent Relationship Specialty Start Date End Date Abdoul Noe MD [address] PCP - General 07/25/20
--- OUTSIDE RECORDS SUMMARY | 2024-09-02 09:26 | XMS_ITS | Clinical Summary ---
Author Organization [facility] Address [address] [place] [address] Care Team Providers Care Stem Roller Or Crusher Operator Name Role Phone Stan Mota MD Primary Care Provider [phone] Social History Tobacco Use Types Packs/Day Years [...] this topic Zoster (Zostavax) Discontinued Care Teams Stem Roller Or Crusher Operator Relationship Specialty Start Date End Date Stan Mota MD [address] [place] [id number] PCP - General 02/18/23
--- OUTSIDE RECORDS SUMMARY | 2024-09-02 09:26 | XMS_ITS | Clinical Summary ---
Author Organization [employer] Address [address] [facility] 7t [place] [address] Care Team Providers Care Sourcing Coordinator Name Role Phone Unavailable Primary Care Provider [...]
--- OUTSIDE RECORDS SUMMARY | 2024-09-02 09:27 | XMS_ITS | Continuity of Care Document ---
Author Name [facility] Organization [facility] Care Team Providers Care Office Manager Receptionist Name Role Phone [facility] Unavailable Unavailable Problems Combined list of problems from Department of Defense and Veterans Affairs facilities. It does not include entries that were removed or entered in error. 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 Jan 29, 2011 Entered By: LUIS ANGEL MAHER RA Comment: 12-17: Lt Gt Toe 03/19: Rt Gt ToeJul 2010 Entered By: LUIS ANGEL MAHER RA Comment: 10/18: 2nd Left Toe AmputationJul 2010 Entered By: LUIS ANGEL MAHER RA Comment: 07/22: left 2nd MCP Amputation [place] Background diabetic retinopathy Active Condition Jan 29, 2011 Entered By: LUIS ANGEL MAHER RA Comment: 08/22: Lazer Surgery Left Eye [place] Cerebrovascular Accident Active Condition Jan 29, 2011 Entered By: LUIS ANGEL MAHER RA Comment: TIA X 3: 04/2005 & 05/2005 & 04/2006 [place] Diabetes Mellitus Type II or unspecified with unspecified complications Active Condition [place] Essential hypertension Active Condition [place] Foot Pain (ICD-9-CM 719.47) Active Condition [place] Headache Active Condition [place] Lack of Housing (ICD-9-CM V60.0) Active Condition [facility] ELD Novolog Sliding: AM: 5 Ux PM:5 Ux HS: 8Ux Active Condition Jan 29 011 Entered By: LUIS ANGEL MAHER RA Comment: 100-150: 2 Ux 151-200Ux: 4Ux 201-250Ux: 6UxJul 2010 Entered By: LUIS ANGEL MAHER RA Comment: 251-300 Ux: 8Ux 301-350: 10 UxJul 2010 Entered By: LUIS ANGEL MAHER RA Comment: NOT TO EXCEED 20 Units [place] Onychomycosis of toenails Active Condition [facility] Other Specified Housing or Economic Circumstances (ICD-9-CM V60.89) Active Condition [facility] IELD PCP: Hasmukh JOHNSON: [facility] Active Condition [place] Personal History of Alcoholism Active Condition Aug 30, 2011 Entered By: LUIS ANGEL MAHER RA Comment: used to drink alot: started at 15yo till quit 03-29-2005 [place] Personal History of Tobacco Use Active Condition Aug 30, 2011 Entered By: LUIS ANGEL MAHER RA Comment: Cigars: 1979 once a monthAug 30, 2011 Entered By: LUIS ANGEL MAHER RA Comment: Diet:3 meals/day Exercise: BikeAug 30, 2011 Entered By: LUIS ANGEL MAHER RA Comment: [employer]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; 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 [place] Pure hypercholesterolemia Active Condition [facility] Aid: [place]:[phone] Active Condition [facility] LD Screening for Malignant Neoplasms of colon Active Condition Feb 28, 2012 Entered By: LUIS ANGEL MAHER RA Comment: 04/07/2012: Colonoscopy In [facility] Social Hx: Single lives alone Active Condition [place] Unspecified Sleep Apnea Active Condition Jan 29, 2011 Entered By: LUIS ANGEL MAHER RA Comment: Has CPAP Machine: does not Use It [place] Medications Combined list of outpatient medications from Department of Defense and Veterans Affairs facilities.Medications provided include 1) outpatient medications from the last 15 months, and 2) patient-reported medications. Medication Details Route Status Patient Instructions Prescription Expires Prescription Number Last Dispense Date Ordering Provider Order Date Order Qty Source ATENOLOL 25MG TAB TAKE ONE TABLET BY MOUTH TWICE DAILY ORAL ACTIVE YASMANY DOMÍNGUEZ 2011 [facility] [place] ATORVASTATI N [place] 80MG TAB TAKE ONE TABLET BY MOUTH AT BEDTIME ORAL ACTIVE YASMANY DOMÍNGUEZ 2010 [facility] [place] INSULIN,GLA RGINE (LANTUS) [...] adverse reactions to drug (finding) [facility] [place] [facility] Immunizations Combined list of available immunizations from the Department of Defense and Veterans Affairs facilities. Immunization Series Date Given Administered By Site Reaction Lot Number CVX Code Drug Emergency Dispatch Operator Status Comments Source COVID-19 ([employer]), VECTOR-NR, RS-AD26, PF, 0.5 ML 1 2020 212 complet ed JSN; [id number]; [address] [facility] [place] [facility] [facility] FLU,3 YRS (HISTORICAL) 2013 88 complet ed outside pcp [facility] [place] [facility] DTAP, UNSPECIFIED FORMULATION 2011 107 complet ed Site: Right Deltoid [place] FLU,3 YRS (HISTORICAL) 2010 88 complet ed Site: Left Deltoid [place] PNEUMOCOCCAL, UNSPECIFIED FORMULATION 2009 109 complet ed [facility] [place] [facility] [facility] Social History Combined list of available smoking, tobacco, and other social history from Department of Defense and Veterans Affairs facilities. Social History Type Response Date Comment [facility] e Tobacco smoking status NHIS LIFETIME NON-TOBACCO USER 01/12 [place]
--- OUTSIDE RECORDS SUMMARY | 2024-09-02 09:27 | XMS_ITS | Continuity of Care Document ---
Author Organization [place] - [facility], [facility] Address [address] [place] [address] Care Team Providers Care Child Care Associate Teacher Name Role Phone DIANA SANCHEZ Primary Care Provider AMARILIS HADDAD OTHER Assessment Encounter Date Assessment Date Assessment LastModified by Organization Details LastModified Time 08/21/2024 08/21/2024 Nasal examination notable for crusting left anterior septum and right mid septum. Encouraged regular use of nasal saline to soften the crusting and allow the underlying mucosa to heal. Defer on fiberoptic examination given his recent completion of radiation therapy. Follow-up after PET/CT in November to begin routine surveillance [email or web address] Not available 08/21/2024 13:28:15 Plan of Treatment Reminders Order Date Submit Date Provider Last Modified By Organization Details Last Modified Time Details Appointments Establish ed 15 2024 09:45A M ARMIN NAGY MD Not available Not available Not available Lab None recorded. Referral None recorded. Procedures None recorded. Surgeries None recorded. Imaging None recorded. Medication Orders None recorded. Patient TargetsNo targets recorded. Patient InstructionsNo instructions recorded. Reason for Referral None Reported. 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 Procedures Surgical History Date Name Laterality Status Provider Name and Address Organization Details Recorded Time 03/11/2024 Nsl/sins ndsc surg bx polypc completed ARMIN NAGY MD [address] [facility],[place] [address], [place], [address], [facility] 03/11/2024 08:17:58 02/13/2024 NasalEndosc opy_DP completed ARMIN NAGY MD [address] [place] [address],[place] [address], [place], [address], [facility] 02/13/2024 16:41:22 Imaging Results None recorded. Procedure Notes None recorded. Medical Equipment None Reported. Allergies No known drug allergies Medications Name Sig Start Date Stop Date Status Note LastModified by Organization Details LastModified Time compound drug active Not Available Not Available Not Available miracle mouth wash #1 active Not Available Not Available Not Available losartan 50 mg tablet TAKE ONE TABLET BY MOUTH TWICE A DAY active Not Available Not Available No t Available silver sulfadiazi ne 1 % topical cream APPLY TOPICALLY TO AREA AFFECTED BY RADIOTHER APY TWO TIMES A DAY active Not Available Not Available No t Available atorvastat in 80 mg tablet TAKE ONE TABLET BY MOUTH EVERY DAY active Not Available Not Available No t Available Lidocaine Viscous 2 % mucosal solution APPLY 5 ML TO MOUTH SORE THREE TIMES A DAY BEFORE MEALS. CAN ALTERNATE WITH MAGIC MOUTHWASH active Not Available Not Available No t Available senna 8.6 mg tablet TAKE TWO TABLETS BY MOUTH EVERY DAY AT BEDTIME NEEDED FOR CONSTIPAT ION active Not Available Not Available No t Available FreeStyle Lancets 28 gauge 2014 [place]: [id number] Dur ation Value: 30 Brand Name: FreeStyle Lancets S end Method: E-Prescri bed Subs Allowed: subs OK Specia l Instructi on: USE TO TEST GLUCOSE 3 TIMES A DAY Medic ationGene ricName: FreeStyle Lancets Not Available Not Available Not Available atenolol 25 mg tablet 2014 [place] n ID: [id number] Dur ation Value: 90 Brand Name: atenolol Send Method: E-Prescri bed Subs Allowed: subs OK Specia l Instructi on: TK 1 T PO BID Medic ationGene ricName: atenolol Not Available Not Available Not Available Lantus U-100 Insulin 100 unit/mL subcutaneo us solution 2014 [place] ID: [id number] Dur ation Value: 26 Brand Name: Lantus Se nd Method: E-Prescri bed Subs Allowed: subs OK Specia l Instructi on: INJECT 15 UNITS IN AM AND 60 UNITS SUBCUTANE OUS INFUSION D AT BEDTIME M edication GenericNa me: Lantus Not Available Not Available Not Available acetaminop hen 300 mg-codeine 15 mg tablet TAKE ONE TABLET BY MOUTH THREE TIMES A DAY NEEDED FOR PAIN FOR 5 DAYS active Not Available Not Available No t Available clopidogre l 75 mg tablet TAKE ONE TABLET BY MOUTH EVERY DAY active Not Available Not Available No t Available amlodipine 5 mg tablet TAKE TWO TABLETS BY MOUTH EVERY DAY active Not Available Not Available No t Available sulfametho xazole 800 mg-trimeth oprim 160 mg tablet TAKE ONE TABLET BY MOUTH TWICE A DAY FOR 7 DAYS active Not Available Not Available No t Available omeprazole 40 mg capsule,de layed release TAKE ONE CAPSULE BY MOUTH EVERY DAY active Not Available Not Available No t Available oxycodone- acetaminop hen 5 mg-325 mg tablet 2014 [place] Medic[place] n ID: [id number] Dur ation Value: 7 Brand Name: oxycodone -acetamin ophen Sen d Method: E-Prescri bed Subs Allowed: subs OK Specia l Instructi on: TK 1 TO 2 TS PO Q 4 TO 6 H PRF PAIN MUST LAST [address] WHI LE ON THIS MEDICATIO N Medicat ionGeneri cName: oxycodone -acetamin ophen Not Available Not Available Not Available Humalog U-100 Insulin 100 unit/mL subcutaneo us solution 2014 active Medicatio n ID: [id number] Dur ation Value: 30 Brand Name: Humalog S end Method: E-Prescri bed Subs Allowed: subs OK Specia l Instructi on: ON SLIDING SCALE ACCORDING TO BLOOD SUGAR LEVEL. THIS IS TO REPLACE NO VOLOG D/C NOVOLOG. Medicatio nGenericN paul: Humalog Not Available Not Available Not Available meclizine 25 mg tablet TAKE ONE TABLET BY MOUTH THREE TIMES A DAY active Not Available Not Available No t Available amlodipine 10 mg tablet 2014 active Medicatio n ID: [id number] Dur ation Value: 30 Brand Name: amlodipin e Send Method: E-Prescri bed Subs Allowed: subs OK Specia l Instructi on: TK 1 T PO ONCE D Medicat ionGeneri cName: amlodipin e Not Available Not Available Not Available cephalexin 500 mg capsule TAKE ONE CAPSULE BY MOUTH FOUR TIMES A DAY FOR 7 DAYS active Not Available Not Available No t Available metformin 1,000 mg tablet TAKE ONE TABLET BY MOUTH TWICE A DAY. PLEASE HAVE LABS DRAWN FOR ADDITIONA L REFILLS) active Not Available Not Available No t Available valsartan 320 mg tablet 2014 active Medicatio n ID: [id number] Dur ation Value: 30 Brand Name: valsartan Send Method: E-Prescri bed Subs Allowed: subs OK Specia l Instructi on: TK 1 T PO ONCE D Medicat ionGeneri cName: valsartan Not Available Not Available Not Available aspirin 81 mg chewable tablet CHEW AND SWALLOW ONE TABLET BY MOUTH EVERY DAY active Not Available Not Available No t Available bumetanide 1 mg tablet TAKE ONE TABLET BY MOUTH EVERY DAY active Not Available Not Available No t Available insulin syringe U-100 with needle 1 mL 31 gauge x 5/16 2014 active Medicatio n ID: [id number] Dur ation Value: 30 Brand Name: insulin syringe-n eedle U-100 Sen d Method: E-Prescri bed Subs Allowed: subs OK Specia l Instructi on: U INSULIN SYRINGES 5 TIMES A DAY TO ADMINISTE R SHORT AND LONG ACTING I NSULIN Me dicationG enericNam e: insulin syringe-n eedle U-100 Not Available Not Available Not Available hydrochlor othiazide 25 mg tablet 2014 active Medicatio n ID: [id number] Dur ation Value: 30 Brand Name: gabbi alexander e Send Method: E-Prescri bed Subs Allowed: subs OK Specia l Instructi on: TK 1 T PO ONCE D Medicat ionGeneri cName: gabbi alanid e Not Available Not Available Not Available Pepcid 20 mg tablet 1 tablet by mouth 2014 [place] n ID: [id number] Dur ation Value: 1 Prescrib ed By Name: Armin Nagy M.D. Bran james Name: Pepcid Se nd Method: E-Prescri bed Subs Allowed: subs OK Medica tionGener icName: Pepcid Not Available Not Available Not Available polyethyle ne glycol 3350 17 gram/dose oral powder DISSOLVE 17 GM 1 CAPFUL) IN 4-8 OZ OF BEVERAGE AND DRINK BY MOUTH DAILY active Not Available Not Available No t Available methylpred nisolone 4 mg tablets in a dose pack active Not Available Not Available Not Available labetalol 100 mg tablet TAKE ONE TABLET BY MOUTH TWICE A DAY active Not Available Not Available No t Available albuterol sulfate HFA 90 mcg/actuat ion aerosol inhaler INHALE ONE PUFF BY MOUTH EVERY 4 HOURS NEEDED FOR WHEEZING active Not Available Not Available No t Available doxycyclin e hyclate 100 mg tablet TAKE ONE TABLET BY MOUTH TWICE A DAY FOR 7 DAYS active Not Available Not Available No t Available fluticason e propionate 110 mcg/actuat ion HFA aerosol inhaler INHALE TWO PUFFS BY MOUTH TWICE A DAY. RINSE MOUTH AND THROAT WITH WATER AND SPIT AFTER EACH USE. active Not Available Not Available No t Available amoxicilli n 875 mg-potassi um clavulanat e 125 mg tablet TAKE ONE TABLET BY MOUTH EVERY 12 HOURS FOR 10 DAYS active Not Available Not Available No t Available clindamyci n phosphate 1 % topical solution APPLY TOPICALLY TO AFFECTED AREA S) 2 TIMES A DAY FOR 14 DAYS active Not Available Not Available No t Available oxycodone 5 mg tablet TAKE ONE TABLET BY MOUTH EVERY 6 HOURS NEEDED FOR PAIN active Not Available Not Available No t Available neomycin-p olymyxin-h ydrocort 3.5 mg-10,000 unit/mL-1 % ear drops,susp INSTILL 4 DROPS IN THE RIGHT EAR FOUR TIMES A DAY FOR 10 DAYS active Not Available Not Available No t Available azithromyc in 500 mg tablet active Not Available Not Available Not Available ezetimibe 10 mg tablet TAKE ONE TABLET BY MOUTH EVERY DAY active Not Available Not Available No t Available Vitamin D3 25 mcg (1,000 unit) capsule TAKE ONE CAPSULE BY MOUTH EVERY DAY active Not Available Not Available No t Available nitrofuran toin monohydrat e/macrocry stals 100 mg capsule TAKE ONE CAPSULE BY MOUTH TWICE A DAY FOR 10 DAYS. PLEASE DO A URINE TEST 1 WEEK AFTER COMPLETIN G ANTIBIOTI C active Not Available Not Available No t Available Atrovent HFA 17 mcg/actuat ion aerosol inhaler 2014 active Medicatio n ID: [id number] Dur ation Value: 25 Brand Name: Atrovent HFA Send Method: E-Prescri bed Subs Allowed: subs OK Specia l Instructi on: INHALE 2 PUFFS PO QID Medic ationGene ricName: Atrovent HFA Not Available Not Available Not Available fenofibrat e nanocrysta llized 145 mg tablet TAKE ONE TABLET BY MOUTH EVERY DAY active Not Available Not Available No t Available Dakin's Solution 0.125 % 2014 [place] ID: [id number] Dur ation Value: 10 Brand Name: Dakin's Solution Send Method: E-Prescri bed Subs Allowed: subs OK Medica tionGener icName: Dakin's Solution Not Available Not Available Not Available cholecalci ferol (vitamin D3) 1,250 mcg (50,000 unit) capsule TAKE ONE CAPSULE BY MOUTH EVERY WEEK active Not Available Not Available No t Available GaviLyte-G 236 gram-22.74 gram-6.74 gram-5.86 gram oral solution 2014 [place] ID: [id number] Dur ation Value: 1 Brand Name: GaviLyte- G Send Method: E-Prescri bed Subs Allowed: subs OK Specia l Instructi on: DRINK 240 ML EVERY 10 MINUTES M edication GenericNa me: GaviLyte- G Not Available Not Available Not Available liraglutid e 0.6 mg/0.1 mL (18 mg/3 mL) subcutaneo us pen injector INJECT 1.8 MG DAILY UNDER THE SKIN active Not Available Not Available No t Available Jardiance 25 mg tablet TAKE ONE TABLET BY MOUTH EVERY MORNING active Not Available Not Available No t Available Arnuity Ellipta 100 mcg/actuat ion powder for inhalation INHALE ONE PUFF BY MOUTH EVERY 24 HOURS. THIS REPLACES FLOVENT) active Not Available Not Available No t Available Incruse Ellipta 62.5 mcg/actuat ion powder for inhalation INHALE 1 PUFF BY MOUTH EVERY 24 HOURS. DOSES SHOULD BE TAKEN AT LEAST 24 HOURS APART active Not Available Not Available No t Available FreeStyle Precision Danilo Strips USE UP TO THREE TIMES A DAY TO CHECK BLOOD SUGAR active Not Available Not Available No t Available Humulin R U-500 (Conc) Insulin Kwikpen 500 unit/mL (3 mL) subcutaneo us INJECT 80 TO 110 UNITS UNDER THE SKIN THREE TIMES A DAY 30 MINUTES BEFORE MEALS. BASED ON SLIDING SCALE active Not Available Not Available No t Available Basaglar KwikPen U-100 Insulin 100 unit/mL (3 mL) subcutaneo us INJECT 15 UNITS UNDER THE SKIN DAILY AT BEDTIME. ROTATE INJECTION SITES active Not Available Not Available No t Available baclofen 5 mg tablet TAKE ONE TABLET BY MOUTH TWICE A DAY, ONCE IN THE MORNING AND ONCE BEFORE BED. active Not Available Not Available No t Available BD Milvia 2nd Gen Pen Needle 32 gauge x USE TO INJECT INSULIN 5 TIMES DAILY. active Not Available Not Available No t Available Gvoke HypoPen 2-Pack 1 mg/0.2 mL subcutaneo us auto-injec tor INJECT CONTENTS OF 1 PEN UNDER THE SKIN ONCE NEEDED FOR HYPOGLYCE ARTEMIO EMERG[facility]Y . HAVE A FAMILY MEMBER OR SOMEONE WITH YOU DO THE INJECTION active Not Available Not Available No t Available Ozempic 0.25 mg or 0.5 mg (2 mg/3 mL) subcutaneo us pen injector INJECT 0.5MG UNDER THE SKIN EVERY WEEK; ROTATE INJECTION SITES active Not Available Not Available No t Available AsperFlex (lidocaine ) 4 % topical cream CAN MIX WITH SILVADENE CREAM AND APPLY TO SKIN ON NECK FOUR TIMES A DAY active Not Available Not Available No t Available Vitals Date Recorded Body height Body mass index (BMI) Body weight Provider Name and Address Organization Details Last Updated DateTime 08/21/2024 171.45 cm 40.4 kg/m2 978725.2 g Elvira Cortezmia [place] - [facility] 08/21/2024 13:20:29 Social History None recorded. Functional Status None recorded. Mental Status None recorded. Family History Nothing Reported. 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 Health Concerns Section Related Observation LastModified by Organization Detai ls LastModified Time None Recorded Concern Status LastModified by Organization Details LastModified Time None Recorded Payers Encounter Date Sequence Insurance Name Policy Number Policy Oliva Covered Member ID Oliva Member ID Guarantor Name 08/21/2024 1 [place] [employer] Oscar Henry [id number] Oscar Henry 08/21/2024 2 [place] [facility] Henry [id number] Oscar Henry Notes Date Note Type Note Provider Name and Address Organization Details Recorded Time 08/21/2024 text/html Tumor location: right nasopharynxTreatment: RadiationCompletion: 08/07/24Oncology Team: Jaime Nagy Zhou (no chemo recommended) getting large dried mucus from right nares Dr Haddad scheduling PET ct post treatment around October PMhx - COPD, on meds to help control it. 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 cricothyroidotomy and revision tracheostomy in 2013. was offered a tracheal resection with Dr Ho but he declined ARMIN NAGY MD [address], [address], [place] - [facility] 08/21/2024 13:29:10
[2024-09-02 18:10] LABS: MANUAL DIFF FLAG NO
[2024-09-02 18:20] LABS: Appearance Urine Clear; Color Urine Yellow; Glucose Urine UA >=1000 mg/dL (Negative); Leukocyte Esterase Urine Negative (Negative); Nitrite Urine Negative (Negative); PH 5.5 (5.0-9.0); Specific Gravity - Urine 1.025 (1.005-1.025); UMIC TRIGGER UA YES; Urine Blood Negative (Negative); Urine Ketones Negative (Negative); Urine Protein Negative (Neg-Trace)
[2024-09-02 18:25] LABS: Anion Gap 13 (12-20); Blood Urea Nitrogen 30 mg/dL (9-16); Carbon Dioxide 29 mmol/L (22-29); Chloride 99 mmol/L (96-108); Estimated Glomerular Filt Rate 40; Sodium 137 mmol/L (135-145)
[2024-09-02 18:25] LABS: Bacteria Urine None Seen (None Seen); Hyaline Casts Urine 0-2 /LPF (0-2); RBC Urine 0-2 /HPF (0-2); WBC Urine 0-5 /HPF (0-5)
[2024-09-02 18:29] LABS: Basophils Percent Auto 0.5 % (0-2); Eosinophils Absolute Auto 0.1 X10*3/uL (0.0-0.4); Eosinophils Percent Auto 1.9 % (0-4); Hematocrit 37.2 % (42.0-52.0); Hemoglobin 12.4 g/dl (14.0-18.0); Imm Gran Abs Auto 0.04 X10*3/uL (0.00-0.03); Imm Gran Pct Auto 0.6 % (0.0-0.4); Lymphocytes Absolute Auto 0.3 X10*3/uL (1.2-4.9); Lymphocytes Percent Auto 4.5 % (20-40); Mean Corpuscular HGB Conc 33.3 g/dl (31.0-36.0); Mean Corpuscular Hemoglobin 28.8 pg (27.0-33.0); Mean Corpuscular Volume 86.3 fL (80.0-98.0); Mean Platelet Volume 11.3 fL (9.4-12.4); Monocytes Absolute Auto 0.4 X10*3/uL (0.1-1.2); Monocytes Percent Auto 6.2 % (2-11); Neutrophils Absolute Auto 5.4 x10*3/uL (2.0-8.3); Neutrophils Percent Auto 86.3 % (45-73); Platelet Count 258 X10*3/uL (160-400); Red Blood Count 4.31 X10*6/uL (4.60-5.80); Red Cell Distribution Width 15.3 % (11.0-16.0); White Blood Count 6.3 X10*3/uL (4.8-10.8)
[2024-09-02 18:31] LABS: Albumin Level 3.9 g/dL (3.5-5.0); Alkaline Phosphatase 41 U/L (39-117); Anion Gap 15 (12-20); Aspartate Amino Transferase 27 U/L (5-37); Bilirubin Total 0.3 mg/dL (0.0-1.0); Blood Urea Nitrogen 30 mg/dL (9-16); Calcium 9.5 mg/dL (8.4-10.2); Carbon Dioxide 28 mmol/L (22-29); Chloride 99 mmol/L (96-108); Estimated Glomerular Filt Rate 42; Glucose Random 271 mg/dL (60-115); Potassium 3.9 mmol/L (3.3-5.1); Sodium 138 mmol/L (135-145); Total Protein 7.4 g/dL (6.5-8.0)
[2024-09-02 18:59] LABS: Creatinine Urine 51.14 mg/dL; Total Protein Urine Random < 7 mg/dL (<12)
[2024-09-02 19:29] LABS: Alanine Aminotransferase < 30 U/L (0-40)
== END 2024-09-02 08:41 | disposition home or self-care (01) ==
LOC: HO.HKASLDS 08:40
PROVIDERS: PCP Internal Medicine; Visit Provider Internal Medicine Hypertension Specialist
DX: N18.9 Chronic kidney disease, unspecified (principal)
CPT/HCPCS: 36415; 80051; 80053; 81001; 82565; 82570; 84156; 84520; 85025; 99212

== ENCOUNTER 2024-12-16 09:25 | Outpatient (AMB) | payer MEDICARE, MEDICAID, SELFPAY ==
[2024-12-16 09:27] VITALS: BP 118/60; PULSE 73; O2SAT 96
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
--- OUTSIDE RECORDS SUMMARY | 2024-12-16 09:47 | XMS_ITS | Clinical Summary ---
Author Organization [employer] Address [address] [facility] [address] [place] [address] Care Team Providers Care Director [employer] Name Role Phone Unavailable Primary Care Provider [...] FOBT 1961 Lipid Panel 1961 Sigmoidoscopy 1961 Disability Screening 1961 Alcohol/Substance Use Screening 1973 Tobacco Screening 1973 DTaP/Tdap/Td Vaccines (1 - Tdap) 02/21/1980 Pneumococcal Vaccine: 50+ Ye ars (1 of 1 - PCV) 2011 Zoster Vaccines (1 of 2) 2011 COVID-19 Vaccine ( - 2023-2 5 season) 2024 Influenza Vaccine (Season Ended) 2025 RSV Patients and Pa tients Aged 60 [...] patient's age to complete this topic Meningococcal B Vaccine Aged Out No l onger eligible based on patient's age to complete [...]
== END 2024-12-16 09:41 | disposition home or self-care (01) ==
LOC: HO.HKAS 09:26
PROVIDERS: PCP Internal Medicine; Visit Provider Internal Medicine Hypertension Specialist
DX: N18.9 Chronic kidney disease, unspecified (principal)
CPT/HCPCS: 99214

== ENCOUNTER → 2024-12-16 09:25 | Outpatient (BNVA) | payer MEDICARE, MEDICAID, SELFPAY | PROVIDERS: PCP Internal Medicine; Visit Provider Internal Medicine Hypertension Specialist | DX: N18.9 Chronic kidney disease, unspecified (principal) | CPT/HCPCS: 99212 ==

== ENCOUNTER 2025-04-14 08:51 | Outpatient (AMB) | payer MEDICARE, MEDICAID, SELFPAY ==
[2025-04-14 08:57] VITALS: BP 138/62; PULSE 66; O2SAT 96
--- NOTE | 2025-04-14 08:57 | HO.NEPHOV ---
Vital Signs 04/14/25 08:57 Weight 260 lb BP 138/62 Blood Pressure Location Rt brachial Position Sitting Pulse 66 Pulse Source Pulse Oximeter Pulse Oximetry (%) 96 Oxygen Delivery Method Room Air Intake Visit Reasons: 4mon follow-up w/labs Paraplanner Required: No Accompanied by: Self / Same As Patient Allergies No Known Allergies Allergy (Verified 04/14/25 09:02) Medication List - Last Reconciled 04/14/25 by Ramiro Al MD albuterol sulfate 90 mcg/actuation inhalation Q4H PRN amlodipine 5 mg PO BID atorvastatin 80 mg PO DAILY baclofen 5 mg PO BID bumetanide 1 mg PO DAILY cholecalciferol (vitamin D3) (Vitamin D3) 25 mcg PO DAILY clopidogrel 75 mg PO DAILY empagliflozin (Jardiance) 25 mg PO DAILY ezetimibe 10 mg PO DAILY fenofibrate nanocrystallized 145 mg PO DAILY fluticasone furoate 100 mcg/actuation (Arnuity Ellipta) 1 inh inhalation DAILY insulin regular hum U-500 conc (Humulin R U-500 (Conc) Insulin Kwikpen) units subcut labetalol 100 mg PO BID losartan 50 mg PO DAILY omeprazole 40 mg PO DAILY oxycodone 5 mg PO BID PRN polyethylene glycol 3350 grams PO DAILY semaglutide (Ozempic) 1 mg subcut QWEEK umeclidinium 62.5 mcg/actuation (Incruse Ellipta) 1 inh inhalation DAILY HPI Comments Details: 64-year-old man with longstanding history of hypertension diabetes mellitus his chronic kidney disease. He has had multiple episodes of MARIUM. Recent creatinine was at 1.9 which is gradually decreased to 1.3 as of 03/03/2024. He has a history of COPD. History of intubation and tracheostomy in 2013. Recently diagnosed with a nasopharyngeal carcinoma and waiting to see oncologist. History of present disease status post bilateral lower extremity amputation and currently in a wheelchair Recently in ER for constipation s/p Manual evacuation. Completed radiation therapy for nasopharyngeal CA on Aug 07 Still has some difficulty swallowing Has lost about 30 lbs with radiation and ozempic 12/16/24 64-year-old male presenting with a follow-up for renal system health and diabetes management. His last visit occurred in June the previous year. Significant improvement in diabetes management is noted, with a reduction in A1c from 8.4% to 7.8%, and stable blood glucose levels. Hypertension is well-managed with a recent blood pressure reading of 118/xx mmHg and no changes in his medication regimen. He reports ongoing symptoms related to past radiation therapy to the throat, including marked dry mouth and difficulty with dry foods due to reduced saliva production. The radiation treatment was completed at the end of July. He avoids certain sticky foods, maintaining adequate hydration to manage his symptoms. Scheduled upcoming evaluations include a PET scan in two weeks, an ENT appointment at the beginning of January, and a urology visit on the and of this month. 04/14/25 - The patient is a 65-year-old male presenting with management of chronic Kidney disease, h/o diabetes mellitus, hypertension, - Diabetes Mellitus: Managed by endocrinology with recent medication adjustment to Ozempic 1 mg weekly. - Hypertension: Controlled with amlodipine, Bumex, and losartan. - Throat healing post-radiation: Ongoing hoarseness due to radiation therapy. 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 Sleep apnea Severe obesity Peripheral vascular disease Morbid obesity Lateral medullary syndrome Hypertension Hyperlipemia Hepatic steatosis Heterozygous factor V Leiden mutation Diabetes mellitus CVA (cerebral vascular accident) COVID-19 COPD (chronic obstructive pulmonary disease) Chronic kidney disease Chronic diastolic CHF (congestive heart failure) Below knee amputation Anemia Surgical History S/P emergency tracheotomy for assistance in breathing (~12/2013) H/O colonoscopy with polypectomy (~06/2017) Physical Exam Vital Signs: Last Vital Signs Pulse 66 04/14/25 08:57 BP 138/62 04/14/25 08:57 Pulse Ox 96 04/14/25 08:57 Oxygen Delivery Method Room Air 04/14/25 08:57 Const General: comfortable; No acute distress Orientation/consciousness: patient oriented x3 Eyes General: appearance normal, both eyes and all related structures Visual Jeff: normal visual jeff by confrontation Neck Neck: Yes supple and Yes no JVD Resp Effort & Inspection: normal respiratory effort and respiratory effort not decreased Cardio Palpation: no palpable S3 and no palpable S4 Heart sounds: no rubs GI Inspection: Yes normal to inspection Palpation (GI): Soft to palpation Percussion: Yes normal to percussion Auscultation: normal bowel sounds General: Yes no CVA tenderness Back/Spine/Pelvis Back: no CVA tenderness Skin General skin exam: no petechiae and no purpura Neuro General: patient oriented x3 and no focal motor deficits Extrem Other: Bilateral lower extremity amputee Results Reviewed Results Reviewed: CR 1.72 Nephrology Results: Hgb, (14.0-18.0) 12.4 g/dl L 09/02/24 WBC, (4.8-10.8) 6.3 X10*3/uL 09/02/24 Plt Count, (160-400) 258 X10*3/uL 09/02/24 Sodium, (135-145) 138 mmol/L 09/02/24 Potassium, (3.3-5.1) 3.9 mmol/L 09/02/24 Chloride, (96-108) 99 mmol/L 09/02/24 Carbon Dioxide, (22-29) 28 mmol/L 09/02/24 BUN, (9-16) 30 mg/dL H 09/02/24 Creatinine, (0.5-1.4) 1.67 mg/dL H 09/02/24 Calcium, (8.4-10.2) 9.5 mg/dL 09/02/24 Urine Protein, (Neg-Trace) Negative mg/dL 09/02/24 Urine Creatinine 51.14 mg/dL 09/02/24 Assessment & Plan Assessment & Plan (1) Chronic kidney disease: Code(s): N18.9 - Chronic kidney disease, unspecified Category: Medical Plan 65-year-old man with longstanding diabetes mellitus and hypertension with chronic kidney disease stage 3. 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 He had episodes of acute kidney injury mostly due to hypoperfusion in a setting of Constipation and radiation Renal function is back to baseline Increase PO fluid intake Goal is to slow the progression of the kidney disease. We discussed importance of tight control blood pressure and blood sugar to slow the portion disease. Continue with LEATHA blockade and SGLT2 inhibitors. Continue to avoid nephrotoxic agents including NSAIDs. All medication should be adjusted to EGFR of less than 60 mL/minute. Orders: Orders Basic Metabolic Panel 4 Months N18.9 - Chronic kidney disease, unspecified Parathyroid Hormone Intact 4 Months N18.9 - Chronic kidney disease, unspecified Complete Blood Count no Diff 4 Months N18.9 - Chronic kidney disease, unspecified Coding Level of Care Code Est Pt Level 4 (77264) Diagnoses Chronic kidney disease N18.9
--- OUTSIDE RECORDS SUMMARY | 2025-04-14 09:28 | XMS_ITS | Clinical Summary ---
Author Organization [facility] Address [address] [place] [phone] Phone Care Team Providers Care Research Dietitian Name Role Phone Abdoul Noe MD Primary Care Provider [phone] Medications Umeclidinium [place] (Incruse Ellipta) 62.5 MCG/INH aerosol powder 1 [...] 3 03/27/2021 Acute nontraumatic kidney injury 03/27/2021 Family History Medical History Relation Comments Diabetes [...] Colorectal Cancer Screening: Sigmoidoscopy 2010 Pneumococcal Vaccine: 50+ Ye ars (3 of 3 - PCV) 06/08/2016 06/08/2015, 08/21/2006 Diabetes: Hemoglobin A1C 08/14/2020 07/16/2019, 12/13 Diabetes: Ophthalmology Exam 08/14/2020 Diabetes: Pedal Pulse Checked 08/14/2020 Diabetes: Sensory Foot Exam 08/14/2020 Diabetes: Visual Foot Exam 08/14/2020 Hepatitis B Vaccine (1 of 3 - Risk 3-dose series) 2021 Influenza Vaccine (#1) 2025 , 04/18/2022, 07/10/2021, Additional history exists Pneumococcal Vaccine: Peds ( 0 to 5 Years) and At-Risk Patients (6 to 49 Years) Discontinued 06/08/2015, 08/21/2006 Procedures Procedure Name Priority Date/Time Associated Diagnosis Comments HEMOGLOBIN A1C Routine 07/16/2019 11:33 AM EST from Last 3 Months or Most Recently Relevant to Health Maintenance Results * (ABNORMAL) Hemoglobin A1c (07/16/2019 11:33 AM EST) Hemoglobin A1C 7.6(H) (4-6) % [facility] 3 Comment: HEMOGLOBIN A1C(%) GLUCOSE CONTROL INDEX <6% EXCELLENT 6-7% VERY GOOD 7-8% GOOD 8-10% FAIR >10% POOR Hemoglobin (Hb) A1c testing is performed by Tiffany Lucille-quant immunoassay. Any cause of shortened erythrocyte survival will reduce exposure of erythrocytes to glucose with a consequent decrease in Hb A1c (%). Testing performed or reported by ~[facility], ~a Service of [facility], ~[address], [place] [address]~ Krishna Negrete MD, Deck Scaler~ 07/16/2019 11:3 3 AM EST us Cecilio Coates MD LAB BLOOD ORDERABLES Final Re sult [facility] 3 from Last 3 Months or Most Recently Relevant to Health Maintenance Insurance [place] [facility] [place] 1,2,3 (VACCN) Medicare [place] 1,2,3 (VACCN) Medicaid [place] Care Teams Research Dietitian Relationship Specialty Start Date End Date Abdoul Noe MD [address] PCP - General 07/25/20
--- OUTSIDE RECORDS SUMMARY | 2025-04-14 09:28 | XMS_ITS | Encounter Summary ---
Author Organization [employer] Address [address] [place] [address] Care Team Providers Care Recreation Manager Name Role Phone Unavailable Primary Care Provider Unavailabl e Encounter Details Date Type Department Care Team (Latest Contact Info) Description 12/02/2018 Abstract C CONVERSIONS Dental, Provider, DDS Social History Tobacco [...]
--- OUTSIDE RECORDS SUMMARY | 2025-04-14 09:28 | XMS_ITS | Clinical Summary ---
Author Organization [facility] Address [address] [place] [address] Care Team Providers Care Clinical Data Specialist Name Role Phone Stan Mota MD Primary Care Provider [phone] Social History Tobacco Use Types Packs/Day Years [...] (Shingrix) (1 of 2) 2011 COVID-19 Vaccine (1 - 2023-2 5 season) 2025 Influenza (#1) 2025 RSV (1 - 1-dose 75+ series) 02/21/2036 HPV Vaccine (No Doses Required) Completed Hep A Aged Out No longer eligi [...] this topic Zoster (Zostavax) Discontinued Care Teams Clinical Data Specialist Relationship Specialty Start Date End Date Stan Mota MD [address] [place] [address] PCP - General 02/18/23
--- OUTSIDE RECORDS SUMMARY | 2025-04-14 09:28 | XMS_ITS | Clinical Summary ---
Author Organization [employer] Address [address] [place] [address] Care Team Providers Care Merchandiser Retail Representative Name Role Phone Unavailable Primary Care Provider [...] Vaccines (1 of 2) 2011 COVID-19 Vaccine (1 - 2023-2 5 season) 2025 Influenza Vaccine (#1) 2025 RSV Patients and Pa tients Aged [...]
== END 2025-04-14 09:22 | disposition home or self-care (01) ==
LOC: HO.HKAS 08:52
PROVIDERS: PCP Internal Medicine; Visit Provider Internal Medicine Hypertension Specialist
DX: N18.9 Chronic kidney disease, unspecified (principal)
CPT/HCPCS: 99214

== ENCOUNTER → 2025-04-14 08:51 | Outpatient (BNVA) | payer MEDICARE, MEDICAID, SELFPAY | PROVIDERS: PCP Internal Medicine; Visit Provider Internal Medicine Hypertension Specialist | DX: E11.22 Type 2 diabetes mellitus with diabetic chronic kidney disease (principal); N18.9 Chronic kidney disease, unspecified | CPT/HCPCS: 99212 ==